=== PATIENT | female | born 1955 | race African-American/Black ===

== ENCOUNTER 2018-09-14 12:31 | Inpatient (IN) | payer OTHER ==
[~2018-09-14 12:31] MED LIST: ADENOSINE 3 MG/ML SYRINGE IV; AMIODARONE 150 MG INJ; EPINEPHrine 0.1 MG/ML SYG; NA BICARBONATE 8.4% 50 ML SYG; NALOXONE 2 MG SYG
[2018-09-14] MEDS: SOD CHLORIDE 0.9% 1,770 ML IV (13:13)
[2018-09-14 13:14] LABS: WHITE BLOOD COUNT 2.6 10^3/ul (4.8-10.8)
[2018-09-14 13:14] LABS: ABNORMAL IP MESSAGE 1; HEMATOCRIT 39.4 % (37.0-47.0); HEMOGLOBIN 12.4 g/dl (12.0-16.0); MEAN CORPUSCULAR HEMOGLOBIN 30.2 pg (29.0-33.0); MEAN CORPUSCULAR HGB CONC 31.5 g/dl (32.0-37.0); MEAN CORPUSCULAR VOLUME 95.9 fl (82.0-101.0); MEAN PLATELET VOLUME 11.1 fl (7.4-10.4); PLATELET COUNT 146 10^3/UL (140-415); RED BLOOD COUNT 4.11 10^6/ul (4.20-5.40); RED CELL DISTRIBUTION WIDTH 12.9 % (11.5-14.5)
[2018-09-14] MEDS: AMIODARONE 900 MG in DEXTROSE 5% 482 ML IV (13:14)
[2018-09-14] MEDS: PIPER-TAZO 3.375 GM IV (PMX) 100 ML IVPB ×2 (13:14→22:22)
[2018-09-14 13:16] LABS: ADD MAN DIFF? YES; POSITIVE DIFF @See below
[2018-09-14] MEDS: PROPOFOL 100 ML IV (13:26)
[2018-09-14 13:40] LABS: INR 1.01; PROTIME 13.4 Sec (11.9-14.9)
[2018-09-14 13:41] LABS: PARTIAL THROMBOPLASTIN TIME 33.1 Sec (23.0-35.0)
[2018-09-14 13:44] LABS: ALANINE AMINOTRANSFERASE 455 IU/L (13-69); ALBUMIN 3.4 g/dl (3.3-4.9); ALKALINE PHOSPHATASE 79 IU/L (42-121); ANION GAP 24 (5-13); ASPARTATE AMINO TRANSFERASE 437 IU/L (15-46); BLOOD UREA NITROGEN 12 mg/dl (7-20); CALCIUM 7.9 mg/dl (8.4-10.2); CARBON DIOXIDE 19 mmol/L (21-31); CHLORIDE 99 mmol/L (97-110); CREATININE 0.89 mg/dl (0.44-1.00); Estimated GFR > 60 mL/min (>60); GLUCOSE 249 mg/dl (70-220); SODIUM 142 mmol/L (135-144)
[2018-09-14 13:46] LABS: AADO2 Arterial 513.2 mmHg (7.0-24.0); Allen Test ACCEPTAB; Arterial Blood Gas Oxygen Sat 98.2 mmHG (95.0-98.0); Arterial COHb 0.3 % (0.0-3.0); Arterial Fraction of Oxyhgb 97.5 % (93.0-99.0); Arterial MetHb 0.4 % (0.0-1.5); Arterial pCO2 49.3 mmhg (35-45); MODE VENT - AC; Site Left Radial
[2018-09-14 13:49] LABS: ETHANOL < 10.0 mg/dl (0-0)
[2018-09-14 13:51] LABS: POTASSIUM 2.1 mmol/L (3.5-5.1)
[2018-09-14 13:53] LABS: BASOPHILS % (M) 1 % (0-2); ERYTHROBLAST% (NRBC) (M) 1 % (0-0); GIANT THROMBO% (M) 3 % (0-0); LYMPHOCYTES #M 2.2 10^3/ul (0.8-2.9); LYMPHOCYTES % (M) 85 % (15-51); METAMYELOCYTES %M 1 % (0-0); MONOCYTES % (M) 2 % (0-11); MYELOCYTES % (M) 1 % (0-0); PLATELET ESTIMATE NORMAL; REACTIVE LYMPHOCYTES #M 0.2 10^3/ul (0.0-0.0); REACTIVE LYMPHOCYTES% (M) 10 % (0-0); SMUDGE%M 18 % (0-0); SPHEROCYTES 1+ (0-0)
[2018-09-14 13:55] LABS: TROPONIN-I 0.014 ng/ml (0.000-0.120)
[2018-09-14] MEDS ORDERED: VECURONIUM 10 MG VIAL (13:59)
[2018-09-14 14:01] LABS: MAGNESIUM 2.2 mg/dl (1.7-2.5)
[2018-09-14] MEDS: POTASSIUM CHLORIDE 100 ML IVPB ×4 (14:10→20:20)
[2018-09-14] MEDS: VANCOMYCIN 1 GM (PMX) 250 ML IVPB (14:10)
[2018-09-14 14:26] LABS: ADD UMIC YES; UR ASCORBIC ACID NEGATIVE (NEGATIVE); UR BACTERIA FEW /HPF (NONE SEEN); UR BILIRUBIN (Dip) NEGATIVE (NEGATIVE); UR BLOOD (Dip) 2+ mg/dL (NEGATIVE); UR CLARITY CLOUDY (CLEAR); UR COLOR YELLOW (YELLOW); UR GLUCOSE (Dip) 3+ mg/dL (NEGATIVE); UR KETONES (Dip) TRACE mg/dL (NEGATIVE); UR LEUKOCYTE ESTERASE (Dip) NEGATIVE Leu/ul (NEGATIVE); UR NITRITE (Dip) NEGATIVE (NEGATIVE); UR RBC 22 /HPF (0-5); UR RENAL EPITHELIAL CELL FEW /HPF (NONE SEEN); UR SQUAMOUS EPITHELIAL CELL MODERATE /HPF (FEW); UR TOTAL PROTEIN (Dip) 3+ mg/dl (NEGATIVE); UR UROBILINOGEN (Dip) NEGATIVE (NEGATIVE); UR WBC 15 /HPF (0-5)
[2018-09-14 14:55] LABS: AMPHETAMINE/METHAMPHETAMINE Negative (NEGATIVE); BARBITURATES Negative (NEGATIVE); BENZODIAZEPINES Negative (NEGATIVE); CANNABINOIDS Negative (NEGATIVE); COCAINE Negative (NEGATIVE); OPIATES Negative (NEGATIVE)
[2018-09-14] MEDS ORDERED: ALBUTEROL HFA 8 GM INHALER INH (16:30)
[2018-09-14 16:49] LABS: HEMOGLOBIN A1C 5.4 % (0-5.9)
[2018-09-14] MEDS: ALBUTEROL HFA 8 GM INHALER INH ×2 (17:00→23:23)
[2018-09-14] MEDS ORDERED: MIDAZOLAM (DRIP) 50 mg/50 mL 50 ML IV ×2 (18:15→18:30)
[2018-09-14 18:21] LABS: LACTIC ACID 3.4 mmol/L (0.5-2.0)
[2018-09-14] MEDS: D5W-0.45 NACL + KCL 20 MEQ 1,000 ML IV (18:28)
[2018-09-14] MEDS: SOD CHLORIDE 0.9% 1,000 ML IV (19:10)
[2018-09-14 19:29] LABS: AADO2 Arterial 608.9 mmHg (7.0-24.0); Allen Test ACCEPTAB; Arterial Base Excess -7.7 mmol/L (-3.0-3); Arterial Blood Gas Oxygen Sat 92.2 mmHG (95.0-98.0); Arterial COHb 0.3 % (0.0-3.0); Arterial Fraction of Oxyhgb 91.6 % (93.0-99.0); Arterial HCO3 19.7 mmol/L (22.0-26.0); Arterial MetHb 0.3 % (0.0-1.5); Arterial pCO2 43.3 mmhg (35-45); MODE VENT - AC; Site Right Radial
[2018-09-14 19:47] LABS: WHITE BLOOD COUNT 2.5 10^3/ul (4.8-10.8)
[2018-09-14 19:48] LABS: ABNORMAL IP MESSAGE 1; HEMATOCRIT 41.8 % (37.0-47.0); HEMOGLOBIN 13.5 g/dl (12.0-16.0); MEAN CORPUSCULAR HEMOGLOBIN 30.1 pg (29.0-33.0); MEAN CORPUSCULAR HGB CONC 32.3 g/dl (32.0-37.0); MEAN CORPUSCULAR VOLUME 93.3 fl (82.0-101.0); MEAN PLATELET VOLUME 10.9 fl (7.4-10.4); PLATELET COUNT 171 10^3/UL (140-415); RED BLOOD COUNT 4.48 10^6/ul (4.20-5.40); RED CELL DISTRIBUTION WIDTH 13.2 % (11.5-14.5)
[2018-09-14 19:56] LABS: ADD MAN DIFF? YES; POSITIVE DIFF @See below
[2018-09-14 20:04] LABS: ANION GAP 6 (5-13); BLOOD UREA NITROGEN 17 mg/dl (7-20); CALCIUM 7.1 mg/dl (8.4-10.2); CARBON DIOXIDE 23 mmol/L (21-31); CHLORIDE 112 mmol/L (97-110); CREATININE 0.94 mg/dl (0.44-1.00); Estimated GFR > 60 mL/min (>60); GLUCOSE 202 mg/dl (70-220); MAGNESIUM 1.8 mg/dl (1.7-2.5); PHOSPHORUS 3.8 mg/dl (2.5-4.9); POTASSIUM 3.5 mmol/L (3.5-5.1); SODIUM 141 mmol/L (135-144)
[2018-09-14 20:10] LABS: LACTIC ACID 4.2 mmol/L (0.5-2.0)
[2018-09-14] MEDS: MIDAZOLAM (DRIP) 50 mg/50 mL 50 ML IV (20:20)
[2018-09-14] MEDS: morphine 2 MG INJ IV (20:20)
[2018-09-14] MEDS: NORepinephrine 8MG/250 ML (PMX 250 ML IV (20:45)
[2018-09-14] MEDS: FENTAnyl (DRIP) 1000 mcg/100mL 100 ML IV (20:50)
[2018-09-14 21:27] LABS: BAND NEUTROPHILS #M 0.6 10^3/ul (0.0-0.6); BAND NEUTROPHILS % (M) 27 % (0-4); GIANT THROMBO% (M) 19 % (0-0); LYMPHOCYTES #M 0.9 10^3/ul (0.8-2.9); LYMPHOCYTES % (M) 37 % (15-51); METAMYELOCYTES #M 0.2 10^3/ul (0.0-0.0); METAMYELOCYTES %M 8 % (0-0); MONOCYTE #M 0.2 10^3/ul (0.3-0.9); MONOCYTES % (M) 11 % (0-11); MYELOCYTES % (M) 3 % (0-0); OVALOCYTES 1+ (0-0); PLATELET ESTIMATE NORMAL; SEG NEUT #M 0.4 10^3/ul (1.6-7.5); SEGMENTED NEUTROPHILS (M) % 14 % (39-77); SMUDGE%M 83 % (0-0)
[2018-09-14] MEDS ORDERED: INSULIN HUMAN REGULAR 100 UNIT in SOD CHLORIDE 0.9% 99 ML IV (22:00)
[2018-09-14] MEDS ORDERED: DEXTROSE 50% 50 ML SYRINGE IV ×2 (22:00)
[2018-09-14] MEDS ORDERED: HEPARIN 5,000 UNIT/1 ML VIAL SC (22:00)
[2018-09-14] MEDS: ACCU-CHEK XX ×2 (22:22→23:16)
[2018-09-14] MEDS: ACETAMINOPHEN 650MG/20.3ML CUP NGT (23:18)
[2018-09-15] MEDS: MIDAZOLAM (DRIP) 50 mg/50 mL 50 ML IV ×2 (00:47→06:23)
[2018-09-15] MEDS: INSULIN HUMAN REGULAR 100 UNIT in SOD CHLORIDE 0.9% 99 ML IV (00:51)
[2018-09-15] MEDS: ACCU-CHEK XX ×24 (01:00→23:07)
[2018-09-15] MEDS: ALBUTEROL HFA 8 GM INHALER INH ×6 (01:00→21:26)
[2018-09-15 01:13] LABS: WHITE BLOOD COUNT 1.3 10^3/ul (4.8-10.8)
[2018-09-15 01:13] LABS: ABNORMAL IP MESSAGE 1; HEMATOCRIT 42.6 % (37.0-47.0); HEMOGLOBIN 13.9 g/dl (12.0-16.0); MEAN CORPUSCULAR HEMOGLOBIN 30.2 pg (29.0-33.0); MEAN CORPUSCULAR HGB CONC 32.6 g/dl (32.0-37.0); MEAN CORPUSCULAR VOLUME 92.6 fl (82.0-101.0); MEAN PLATELET VOLUME 11.1 fl (7.4-10.4); PLATELET COUNT 173 10^3/UL (140-415); RED CELL DISTRIBUTION WIDTH 13.4 % (11.5-14.5)
[2018-09-15 01:23] LABS: ADD MAN DIFF? YES; POSITIVE DIFF @See below
[2018-09-15 01:32] LABS: INR 1.01; PARTIAL THROMBOPLASTIN TIME 30.1 Sec (23.0-35.0); PROTIME 13.4 Sec (11.9-14.9)
[2018-09-15 01:35] LABS: AMYLASE 277 U/L (11-123); ANION GAP 13 (5-13); BLOOD UREA NITROGEN 18 mg/dl (7-20); CALCIUM 7.2 mg/dl (8.4-10.2); CARBON DIOXIDE 22 mmol/L (21-31); CHLORIDE 108 mmol/L (97-110); CREATININE 0.89 mg/dl (0.44-1.00); Estimated GFR > 60 mL/min (>60); GLUCOSE 243 mg/dl (70-220); LIPASE 46 U/L (23-300); MAGNESIUM 1.7 mg/dl (1.7-2.5); PHOSPHORUS 3.2 mg/dl (2.5-4.9); SODIUM 143 mmol/L (135-144)
[2018-09-15 01:43] LABS: AADO2 Arterial 621.8 mmHg (7.0-24.0); Allen Test ACCEPTAB; Arterial Base Excess -10.1 mmol/L (-3.0-3); Arterial pCO2 37.9 mmhg (35-45); MODE VENT - AC; Site Right Radial; Temperature 31.9 C
[2018-09-15] MEDS: VECURONIUM 10 MG VIAL IV (02:00)
[2018-09-15 02:06] LABS: BAND NEUTROPHILS #M 0.4 10^3/ul (0.0-0.6); BAND NEUTROPHILS % (M) 33 % (0-4); BASOPHILS % (M) 1 % (0-2); GIANT THROMBO% (M) 43 % (0-0); LYMPHOCYTES #M 0.5 10^3/ul (0.8-2.9); LYMPHOCYTES % (M) 39 % (15-51); METAMYELOCYTES %M 2 % (0-0); MONOCYTE #M 0.1 10^3/ul (0.3-0.9); MONOCYTES % (M) 9 % (0-11); MYELOCYTES #M 0.1 10^3/ul (0.0-0.0); MYELOCYTES % (M) 9 % (0-0); PLATELET ESTIMATE NORMAL; POIKILOCYTOSIS 2+ (0-0); REACTIVE LYMPHOCYTES% (M) 1 % (0-0); SEG NEUT #M 0.1 10^3/ul (1.6-7.5); SEGMENTED NEUTROPHILS (M) % 6 % (39-77); SMUDGE%M 23 % (0-0)
[2018-09-15 02:08] LABS: CK INDEX 0.5; CREATINE KINASE 10473 IU/L (23-200)
[2018-09-15] MEDS ORDERED: POTASSIUM CHLORIDE 200 ML IVPB (02:52)
[2018-09-15] MEDS: VECURONIUM 100 MG in DEXTROSE 5% 100 ML IV (03:14)
[2018-09-15] MEDS: NORepinephrine 8MG/250 ML (PMX 250 ML IV (04:37)
[2018-09-15] MEDS: POTASSIUM CHLORIDE 100 ML IVPB ×2 (05:11→06:26)
[2018-09-15 05:50] LABS: WHITE BLOOD COUNT 1.5 10^3/ul (4.8-10.8)
[2018-09-15 05:50] LABS: ABNORMAL IP MESSAGE 1; HEMATOCRIT 42.1 % (37.0-47.0); HEMOGLOBIN 13.7 g/dl (12.0-16.0); MEAN CORPUSCULAR HEMOGLOBIN 30.1 pg (29.0-33.0); MEAN CORPUSCULAR HGB CONC 32.5 g/dl (32.0-37.0); MEAN CORPUSCULAR VOLUME 92.5 fl (82.0-101.0); MEAN PLATELET VOLUME 11.2 fl (7.4-10.4); PLATELET COUNT 176 10^3/UL (140-415); RED BLOOD COUNT 4.55 10^6/ul (4.20-5.40); RED CELL DISTRIBUTION WIDTH 13.5 % (11.5-14.5)
[2018-09-15 05:55] LABS: ADD MAN DIFF? YES; POSITIVE DIFF @See below
[2018-09-15] MEDS: SOD CHLORIDE 0.9% 1,000 ML IV ×2 (06:27→21:31)
[2018-09-15 06:32] LABS: CK INDEX 0.4; CREATINE KINASE 10369 IU/L (23-200)
[2018-09-15] MEDS: PIPER-TAZO 3.375 GM IV (PMX) 100 ML IVPB ×3 (06:32→21:29)
[2018-09-15] MEDS: PANTOPRAZOLE 40 MG INJ IV (06:32)
[2018-09-15 06:33] LABS: ALANINE AMINOTRANSFERASE 442 IU/L (13-69); ALBUMIN/GLOBULIN RATIO 1.25; ALKALINE PHOSPHATASE 73 IU/L (42-121); ANION GAP 10 (5-13); ASPARTATE AMINO TRANSFERASE 591 IU/L (15-46); BILIRUBIN,INDIRECT 0.2 mg/dl (0-1.1); BILIRUBIN,TOTAL 0.2 mg/dl (0.2-1.3); BLOOD UREA NITROGEN 19 mg/dl (7-20); CALCIUM 7.3 mg/dl (8.4-10.2); CARBON DIOXIDE 20 mmol/L (21-31); CHLORIDE 114 mmol/L (97-110); CREATININE 1.17 mg/dl (0.44-1.00); Estimated GFR 57 mL/min (>60); GLUCOSE 172 mg/dl (70-220); MAGNESIUM 1.7 mg/dl (1.7-2.5); POTASSIUM 3.3 mmol/L (3.5-5.1); SODIUM 144 mmol/L (135-144); TOTAL PROTEIN 5.4 g/dl (6.1-8.1)
[2018-09-15] MEDS: D5W-0.45 NACL + KCL 20 MEQ 1,000 ML IV (07:59)
[2018-09-15 08:45] LABS: ANISOCYTOSIS 1+ (0-0); BAND NEUTROPHILS #M 0.5 10^3/ul (0.0-0.6); BAND NEUTROPHILS % (M) 37 % (0-4); BASOPHILS % (M) 1 % (0-2); BURR CELLS 1+ (0-0); EOSINOPHILS % (M) 1 % (0-7); GIANT THROMBO% (M) 35 % (0-0); LYMPHOCYTES #M 0.6 10^3/ul (0.8-2.9); LYMPHOCYTES % (M) 40 % (15-51); METAMYELOCYTES %M 2 % (0-0); MONOCYTE #M 0.1 10^3/ul (0.3-0.9); MONOCYTES % (M) 7 % (0-11); MYELOCYTES % (M) 6 % (0-0); PLATELET ESTIMATE NORMAL; POIKILOCYTOSIS 1+ (0-0); REACTIVE LYMPHOCYTES% (M) 4 % (0-0); SEGMENTED NEUTROPHILS (M) % 2 % (39-77); SMUDGE%M 11 % (0-0)
[2018-09-15 09:16] LABS: AADO2 Arterial 616.2 mmHg (7.0-24.0); Allen Test ACCEPTAB; Arterial Base Excess -12.7 mmol/L (-3.0-3); Arterial Blood Gas Oxygen Sat 95.4 mmHG (95.0-98.0); Arterial COHb 0.3 % (0.0-3.0); Arterial Fraction of Oxyhgb 94.8 % (93.0-99.0); Arterial HCO3 15.6 mmol/L (22.0-26.0); Arterial MetHb 0.3 % (0.0-1.5); Arterial pCO2 37.4 mmhg (35-45); MODE VENT - AC; Site Right Radial; Temperature 32.8 C
[2018-09-15] MEDS: FENTAnyl (DRIP) 1000 mcg/100mL 100 ML IV (09:45)
[2018-09-15] MEDS: MAGNESIUM SULFATE 2 GM/50 ML 50 ML IVPB (09:46)
[2018-09-15] MEDS: NA BICARBONATE 8.4% 50 ML SYG IV (09:47)
[2018-09-15 11:02] LABS: LACTIC ACID 4.5 mmol/L (0.5-2.0)
[2018-09-15] MEDS: SODIUM BICARBONATE (IV ADD) 100 MEQ in DEXTROSE 5% 1,000 ML IV ×2 (11:07→23:08)
[2018-09-15] MEDS: OCULAR LUBRICANT 3.5 GM OPH OINT BOTH EYES ×3 (11:56→23:08)
[2018-09-15] MEDS: ARTIFICIAL TEARS 15 ML OPH BOTH EYES ×3 (11:57→23:08)
[2018-09-15 12:08] LABS: ABNORMAL IP MESSAGE 1; HEMATOCRIT 40.6 % (37.0-47.0); HEMOGLOBIN 13.4 g/dl (12.0-16.0); MEAN PLATELET VOLUME 11.2 fl (7.4-10.4); PLATELET COUNT 150 10^3/UL (140-415); POSITIVE DIFF @See below; RED BLOOD COUNT 4.46 10^6/ul (4.20-5.40); RED CELL DISTRIBUTION WIDTH 13.5 % (11.5-14.5)
[2018-09-15 12:08] LABS: WHITE BLOOD COUNT 1.8 10^3/ul (4.8-10.8)
[2018-09-15 12:09] LABS: ADD MAN DIFF? YES
[2018-09-15 12:22] LABS: ALANINE AMINOTRANSFERASE 368 IU/L (13-69); ALBUMIN 2.8 g/dl (3.3-4.9); ALBUMIN/GLOBULIN RATIO 1.12; ALKALINE PHOSPHATASE 63 IU/L (42-121); ANION GAP 13 (5-13); ASPARTATE AMINO TRANSFERASE 408 IU/L (15-46); BILIRUBIN,INDIRECT 0.2 mg/dl (0-1.1); BILIRUBIN,TOTAL 0.2 mg/dl (0.2-1.3); BLOOD UREA NITROGEN 20 mg/dl (7-20); CALCIUM 7.3 mg/dl (8.4-10.2); CARBON DIOXIDE 21 mmol/L (21-31); CHLORIDE 111 mmol/L (97-110); CREATININE 1.17 mg/dl (0.44-1.00); Estimated GFR 57 mL/min (>60); GLUCOSE 141 mg/dl (70-220); MAGNESIUM 3.2 mg/dl (1.7-2.5); SODIUM 145 mmol/L (135-144); TOTAL PROTEIN 5.3 g/dl (6.1-8.1)
[2018-09-15 12:27] LABS: INR 1.02; PROTIME 13.5 Sec (11.9-14.9); PT RATIO 1.1
[2018-09-15 12:28] LABS: PARTIAL THROMBOPLASTIN TIME 35.1 Sec (23.0-35.0)
[2018-09-15 12:33] LABS: AADO2 Arterial 549.8 mmHg (7.0-24.0); Allen Test ACCEPTAB; Arterial Base Excess -6.7 mmol/L (-3.0-3); Arterial Blood Gas Oxygen Sat 98.7 mmHG (95.0-98.0); Arterial COHb 0.3 % (0.0-3.0); Arterial Fraction of Oxyhgb 98.2 % (93.0-99.0); Arterial HCO3 19.6 mmol/L (22.0-26.0); Arterial MetHb 0.2 % (0.0-1.5); Arterial pCO2 35.5 mmhg (35-45); MODE VENT - AC; Site Right Radial; Temperature 33.2 C
[2018-09-15 12:55] LABS: ANISOCYTOSIS 1+ (0-0); BAND NEUTROPHILS #M 0.6 10^3/ul (0.0-0.6); BAND NEUTROPHILS % (M) 37 % (0-4); BURR CELLS 2+ (0-0); ERYTHROBLAST% (NRBC) (M) 1 % (0-0); GIANT THROMBO% (M) 12 % (0-0); LYMPHOCYTES #M 0.5 10^3/ul (0.8-2.9); LYMPHOCYTES % (M) 32 % (15-51); METAMYELOCYTES #M 0.1 10^3/ul (0.0-0.0); METAMYELOCYTES %M 7 % (0-0); MICROCYTOSIS 1+ (0-0); MONOCYTE #M 0.1 10^3/ul (0.3-0.9); MONOCYTES % (M) 8 % (0-11); MYELOCYTES % (M) 4 % (0-0); PLATELET ESTIMATE DECREASED; POIKILOCYTOSIS 2+ (0-0); POLYCHROMASIA 3+ (0-0); REACTIVE LYMPHOCYTES% (M) 1 % (0-0); SEG NEUT #M 0.2 10^3/ul (1.6-7.5); SEGMENTED NEUTROPHILS (M) % 10 % (39-77); SMUDGE%M 8 % (0-0)
[2018-09-15 13:10] LABS: CK INDEX 0.5; CREATINE KINASE 9831 IU/L (23-200)
[2018-09-15] MEDS: POTASSIUM CHLORIDE 50 ML IVPB ×3 (17:26→19:00)
[2018-09-15 18:08] LABS: WHITE BLOOD COUNT 2.1 10^3/ul (4.8-10.8)
[2018-09-15 18:08] LABS: ABNORMAL IP MESSAGE 1; HEMATOCRIT 39.3 % (37.0-47.0); HEMOGLOBIN 13.1 g/dl (12.0-16.0); MEAN CORPUSCULAR HEMOGLOBIN 29.8 pg (29.0-33.0); MEAN CORPUSCULAR HGB CONC 33.3 g/dl (32.0-37.0); MEAN CORPUSCULAR VOLUME 89.3 fl (82.0-101.0); MEAN PLATELET VOLUME 11.1 fl (7.4-10.4); PLATELET COUNT 122 10^3/UL (140-415); RED CELL DISTRIBUTION WIDTH 13.4 % (11.5-14.5)
[2018-09-15 18:11] LABS: POSITIVE DIFF @See below
[2018-09-15 18:12] LABS: ADD MAN DIFF? YES
[2018-09-15 18:27] LABS: INR 1.06; PROTIME 13.9 Sec (11.9-14.9); PT RATIO 1.1
[2018-09-15 18:28] LABS: PARTIAL THROMBOPLASTIN TIME 38.3 Sec (23.0-35.0)
[2018-09-15 18:31] LABS: ALANINE AMINOTRANSFERASE 342 IU/L (13-69); ALBUMIN 2.7 g/dl (3.3-4.9); ALBUMIN/GLOBULIN RATIO 1.12; ALKALINE PHOSPHATASE 58 IU/L (42-121); ANION GAP 7 (5-13); ASPARTATE AMINO TRANSFERASE 353 IU/L (15-46); BILIRUBIN,INDIRECT 0.2 mg/dl (0-1.1); BILIRUBIN,TOTAL 0.2 mg/dl (0.2-1.3); BLOOD UREA NITROGEN 22 mg/dl (7-20); CALCIUM 7.4 mg/dl (8.4-10.2); CARBON DIOXIDE 24 mmol/L (21-31); CHLORIDE 110 mmol/L (97-110); Estimated GFR 55 mL/min (>60); GLUCOSE 173 mg/dl (70-220); MAGNESIUM 2.3 mg/dl (1.7-2.5); PHOSPHORUS 2.4 mg/dl (2.5-4.9); POTASSIUM 3.6 mmol/L (3.5-5.1); SODIUM 141 mmol/L (135-144); TOTAL PROTEIN 5.1 g/dl (6.1-8.1)
[2018-09-15 18:35] LABS: LACTIC ACID 3.7 mmol/L (0.5-2.0)
[2018-09-15 18:37] LABS: AADO2 Arterial 368.6 mmHg (7.0-24.0); Allen Test ACCEPTAB; Arterial Base Excess -3.4 mmol/L (-3.0-3); Arterial Blood Gas Oxygen Sat 99.1 mmHG (95.0-98.0); Arterial COHb 0.1 % (0.0-3.0); Arterial Fraction of Oxyhgb 98.7 % (93.0-99.0); Arterial HCO3 22.6 mmol/L (22.0-26.0); Arterial MetHb 0.3 % (0.0-1.5); Arterial pCO2 38.1 mmhg (35-45); MODE TRACH COLLAR; Site Left Radial; Temperature 33.7 C
[2018-09-15 20:29] LABS: ANISOCYTOSIS 1+ (0-0); BAND NEUTROPHILS #M 0.8 10^3/ul (0.0-0.6); BAND NEUTROPHILS % (M) 42 % (0-4); BURR CELLS 3+ (0-0); GIANT THROMBO% (M) 19 % (0-0); LYMPHOCYTES #M 0.3 10^3/ul (0.8-2.9); LYMPHOCYTES % (M) 19 % (15-51); METAMYELOCYTES #M 0.2 10^3/ul (0.0-0.0); METAMYELOCYTES %M 12 % (0-0); MONOCYTE #M 0.2 10^3/ul (0.3-0.9); MONOCYTES % (M) 10 % (0-11); MYELOCYTES % (M) 2 % (0-0); PLATELET ESTIMATE NORMAL; POIKILOCYTOSIS 3+ (0-0); POLYCHROMASIA 1+ (0-0); REACTIVE LYMPHOCYTES% (M) 3 % (0-0); SEG NEUT #M 0.3 10^3/ul (1.6-7.5); SEGMENTED NEUTROPHILS (M) % 12 % (39-77)
[2018-09-15] MEDS: FUROSEMIDE 20 MG INJ IV (20:31)
[2018-09-16 00:22] LABS: AADO2 Arterial 222.1 mmHg (7.0-24.0); Allen Test ACCEPTAB; Arterial Base Excess -3.2 mmol/L (-3.0-3); Arterial Blood Gas Oxygen Sat 97.6 mmHG (95.0-98.0); Arterial COHb 0.3 % (0.0-3.0); Arterial Fraction of Oxyhgb 97.2 % (93.0-99.0); Arterial HCO3 19.8 mmol/L (22.0-26.0); Arterial MetHb 0.1 % (0.0-1.5); Arterial pCO2 29.8 mmhg (35-45); MODE VENT - AC; Site Right Radial
[2018-09-16 00:42] LABS: ABNORMAL IP MESSAGE 1; HEMOGLOBIN 11.3 g/dl (12.0-16.0); MEAN CORPUSCULAR HEMOGLOBIN 30.5 pg (29.0-33.0); MEAN CORPUSCULAR HGB CONC 34.2 g/dl (32.0-37.0); MEAN CORPUSCULAR VOLUME 89.2 fl (82.0-101.0); MEAN PLATELET VOLUME 11.8 fl (7.4-10.4); PLATELET COUNT 106 10^3/UL (140-415); RED CELL DISTRIBUTION WIDTH 13.4 % (11.5-14.5)
[2018-09-16 00:42] LABS: WHITE BLOOD COUNT 2.2 10^3/ul (4.8-10.8)
[2018-09-16 00:44] LABS: POSITIVE DIFF @See below
[2018-09-16 00:45] LABS: ADD MAN DIFF? YES
[2018-09-16 01:05] LABS: ALANINE AMINOTRANSFERASE 260 IU/L (13-69); ALBUMIN 2.2 g/dl (3.3-4.9); ALBUMIN/GLOBULIN RATIO 1.04; ALKALINE PHOSPHATASE 42 IU/L (42-121); ANION GAP 8 (5-13); ASPARTATE AMINO TRANSFERASE 232 IU/L (15-46); BILIRUBIN,INDIRECT 0.2 mg/dl (0-1.1); BILIRUBIN,TOTAL 0.2 mg/dl (0.2-1.3); BLOOD UREA NITROGEN 21 mg/dl (7-20); CALCIUM 6.7 mg/dl (8.4-10.2); CARBON DIOXIDE 25 mmol/L (21-31); CHLORIDE 110 mmol/L (97-110); CREATININE 1.19 mg/dl (0.44-1.00); Estimated GFR 55 mL/min (>60); GLUCOSE 140 mg/dl (70-220); MAGNESIUM 1.9 mg/dl (1.7-2.5); PHOSPHORUS 1.7 mg/dl (2.5-4.9); SODIUM 143 mmol/L (135-144); TOTAL PROTEIN 4.3 g/dl (6.1-8.1)
[2018-09-16 01:07] LABS: INR 1.18; PROTIME 15.1 Sec (11.9-14.9); PT RATIO 1.2
[2018-09-16 01:08] LABS: PARTIAL THROMBOPLASTIN TIME 40.9 Sec (23.0-35.0)
[2018-09-16 01:14] LABS: LACTIC ACID 3.5 mmol/L (0.5-2.0)
[2018-09-16] MEDS: ACCU-CHEK XX ×24 (01:17→23:00)
[2018-09-16] MEDS: ALBUTEROL HFA 8 GM INHALER INH ×6 (01:33→20:09)
[2018-09-16 01:41] LABS: ANISOCYTOSIS 1+ (0-0); BAND NEUTROPHILS % (M) 46 % (0-4); GIANT THROMBO% (M) 4 % (0-0); LYMPHOCYTES #M 0.4 10^3/ul (0.8-2.9); LYMPHOCYTES % (M) 21 % (15-51); METAMYELOCYTES #M 0.1 10^3/ul (0.0-0.0); METAMYELOCYTES %M 7 % (0-0); MICROCYTOSIS 1+ (0-0); MONOCYTES % (M) 2 % (0-11); PLATELET ESTIMATE DECREASED; POIKILOCYTOSIS 3+ (0-0); POLYCHROMASIA 3+ (0-0); SEG NEUT #M 0.6 10^3/ul (1.6-7.5); SEGMENTED NEUTROPHILS (M) % 24 % (39-77); SMUDGE%M 2 % (0-0)
[2018-09-16] MEDS ORDERED: MAGNESIUM SULFATE 1 GM/D5W 100 ML (02:54)
[2018-09-16] MEDS: MAGNESIUM SULFATE 1 GM/D5W 100 ML IVPB (02:57)
[2018-09-16] MEDS: SOD CHLORIDE 0.9% 1,000 ML IV (04:07)
[2018-09-16] MEDS ORDERED: POTASSIUM CHLORIDE 100 ML IVPB (04:38)
[2018-09-16] MEDS: PANTOPRAZOLE 40 MG INJ IV (05:25)
[2018-09-16] MEDS: POTASSIUM CHLORIDE 100 ML IVPB (05:25)
[2018-09-16] MEDS: OCULAR LUBRICANT 3.5 GM OPH OINT BOTH EYES ×3 (05:26→17:23)
[2018-09-16] MEDS: ARTIFICIAL TEARS 15 ML OPH BOTH EYES ×3 (05:26→17:23)
[2018-09-16 05:52] LABS: AADO2 Arterial 250.3 mmHg (7.0-24.0); Allen Test ACCEPTAB; Arterial Base Excess -0.9 mmol/L (-3.0-3); Arterial Blood Gas Oxygen Sat 96.1 mmHG (95.0-98.0); Arterial COHb 0.3 % (0.0-3.0); Arterial Fraction of Oxyhgb 95.6 % (93.0-99.0); Arterial HCO3 22.3 mmol/L (22.0-26.0); Arterial MetHb 0.2 % (0.0-1.5); Arterial pCO2 30.6 mmhg (35-45); MODE VENT - AC; Site Right Radial; Temperature 35.4 C
[2018-09-16 06:14] LABS: ABNORMAL IP MESSAGE 1; HEMATOCRIT 34.8 % (37.0-47.0); HEMOGLOBIN 11.9 g/dl (12.0-16.0); MEAN CORPUSCULAR HEMOGLOBIN 30.1 pg (29.0-33.0); MEAN CORPUSCULAR HGB CONC 34.2 g/dl (32.0-37.0); MEAN CORPUSCULAR VOLUME 88.1 fl (82.0-101.0); MEAN PLATELET VOLUME 11.3 fl (7.4-10.4); PLATELET COUNT 109 10^3/UL (140-415); RED BLOOD COUNT 3.95 10^6/ul (4.20-5.40); RED CELL DISTRIBUTION WIDTH 13.4 % (11.5-14.5)
[2018-09-16 06:14] LABS: WHITE BLOOD COUNT 3.1 10^3/ul (4.8-10.8)
[2018-09-16 06:25] LABS: ADD MAN DIFF? YES; POSITIVE DIFF @See below
[2018-09-16 06:32] LABS: INR 1.69; PT RATIO 1.6
[2018-09-16 06:33] LABS: PARTIAL THROMBOPLASTIN TIME 44.9 Sec (23.0-35.0)
[2018-09-16] MEDS: PIPER-TAZO 3.375 GM IV (PMX) 100 ML IVPB ×3 (06:36→21:53)
[2018-09-16 06:43] LABS: ALANINE AMINOTRANSFERASE 271 IU/L (13-69); ALBUMIN 2.5 g/dl (3.3-4.9); ALBUMIN/GLOBULIN RATIO 1.13; ALKALINE PHOSPHATASE 49 IU/L (42-121); ANION GAP 6 (5-13); ASPARTATE AMINO TRANSFERASE 251 IU/L (15-46); BILIRUBIN,INDIRECT 0.3 mg/dl (0-1.1); BILIRUBIN,TOTAL 0.3 mg/dl (0.2-1.3); BLOOD UREA NITROGEN 24 mg/dl (7-20); CALCIUM 7.1 mg/dl (8.4-10.2); CARBON DIOXIDE 26 mmol/L (21-31); CHLORIDE 107 mmol/L (97-110); CREATININE 1.32 mg/dl (0.44-1.00); Estimated GFR 49 mL/min (>60); GLUCOSE 163 mg/dl (70-220); MAGNESIUM 2.3 mg/dl (1.7-2.5); PHOSPHORUS 2.5 mg/dl (2.5-4.9); POTASSIUM 3.6 mmol/L (3.5-5.1); SODIUM 139 mmol/L (135-144); TOTAL PROTEIN 4.7 g/dl (6.1-8.1)
[2018-09-16 06:44] LABS: LACTIC ACID 3.2 mmol/L (0.5-2.0)
[2018-09-16] MEDS: FENTAnyl (DRIP) 1000 mcg/100mL 100 ML IV (09:00)
[2018-09-16] MEDS ORDERED: D5W-0.45 NACL + KCL 20 MEQ 1,000 ML IV (09:00)
[2018-09-16 09:30] LABS: BAND NEUTROPHILS #M 0.9 10^3/ul (0.0-0.6); BAND NEUTROPHILS % (M) 31 % (0-4); EOSINOPHILS % (M) 2 % (0-7); ERYTHROBLAST% (NRBC) (M) 3 % (0-0); GIANT THROMBO% (M) 28 % (0-0); LYMPHOCYTES % (M) 33 % (15-51); METAMYELOCYTES #M 0.1 10^3/ul (0.0-0.0); METAMYELOCYTES %M 4 % (0-0); MONOCYTE #M 0.3 10^3/ul (0.3-0.9); MONOCYTES % (M) 11 % (0-11); PLATELET ESTIMATE DECREASED; SEG NEUT #M 0.6 10^3/ul (1.6-7.5); SEGMENTED NEUTROPHILS (M) % 19 % (39-77); SMUDGE%M 28 % (0-0)
[2018-09-16] MEDS: MIDAZOLAM (DRIP) 50 mg/50 mL 50 ML IV (09:30)
[2018-09-16] MEDS: ASPIRIN 300 MG SUPP PR (09:30)
[2018-09-16] MEDS: DEXTROSE 5%-0.45% NACL 1,000 ML IV ×2 (10:00→21:53)
[2018-09-16 12:11] LABS: ABNORMAL IP MESSAGE 1; HEMATOCRIT 33.7 % (37.0-47.0); HEMOGLOBIN 11.6 g/dl (12.0-16.0); MEAN CORPUSCULAR HEMOGLOBIN 30.3 pg (29.0-33.0); MEAN CORPUSCULAR HGB CONC 34.4 g/dl (32.0-37.0); MEAN PLATELET VOLUME 11.7 fl (7.4-10.4); PLATELET COUNT 123 10^3/UL (140-415); RED BLOOD COUNT 3.83 10^6/ul (4.20-5.40); RED CELL DISTRIBUTION WIDTH 13.7 % (11.5-14.5)
[2018-09-16 12:11] LABS: WHITE BLOOD COUNT 4.3 10^3/ul (4.8-10.8)
[2018-09-16 12:16] LABS: ALANINE AMINOTRANSFERASE 252 IU/L (13-69); ALBUMIN 2.6 g/dl (3.3-4.9); ALBUMIN/GLOBULIN RATIO 1.18; ALKALINE PHOSPHATASE 49 IU/L (42-121); ANION GAP 7 (5-13); ASPARTATE AMINO TRANSFERASE 227 IU/L (15-46); BILIRUBIN,INDIRECT 0.4 mg/dl (0-1.1); BILIRUBIN,TOTAL 0.4 mg/dl (0.2-1.3); BLOOD UREA NITROGEN 25 mg/dl (7-20); CARBON DIOXIDE 24 mmol/L (21-31); CHLORIDE 107 mmol/L (97-110); CREATININE 1.47 mg/dl (0.44-1.00); Estimated GFR 43 mL/min (>60); GLUCOSE 137 mg/dl (70-220); POTASSIUM 3.6 mmol/L (3.5-5.1); SODIUM 138 mmol/L (135-144); TOTAL PROTEIN 4.8 g/dl (6.1-8.1)
[2018-09-16 12:17] LABS: LACTIC ACID 3.1 mmol/L (0.5-2.0)
[2018-09-16 12:18] LABS: ADD MAN DIFF? YES; POSITIVE DIFF @See below
[2018-09-16 12:26] LABS: INR 1.47; PARTIAL THROMBOPLASTIN TIME 39.7 Sec (23.0-35.0); PROTIME 17.9 Sec (11.9-14.9); PT RATIO 1.4
[2018-09-16 12:28] LABS: LIPASE 19 U/L (23-300)
[2018-09-16 12:28] LABS: AMYLASE 119 U/L (11-123)
[2018-09-16 12:56] LABS: ANISOCYTOSIS 1+ (0-0); BAND NEUTROPHILS #M 1.7 10^3/ul (0.0-0.6); BAND NEUTROPHILS % (M) 40 % (0-4); BASOPHILS % (M) 1 % (0-2); DIMORPHIC RBC 1+ (0-0); ERYTHROBLAST% (NRBC) (M) 1 % (0-0); GIANT THROMBO% (M) 28 % (0-0); LYMPHOCYTES #M 1.4 10^3/ul (0.8-2.9); LYMPHOCYTES % (M) 34 % (15-51); METAMYELOCYTES #M 0.1 10^3/ul (0.0-0.0); METAMYELOCYTES %M 3 % (0-0); MICROCYTOSIS 1+ (0-0); MONOCYTE #M 0.1 10^3/ul (0.3-0.9); MONOCYTES % (M) 4 % (0-11); MYELOCYTES % (M) 1 % (0-0); PLATELET ESTIMATE NORMAL; POIKILOCYTOSIS 3+ (0-0); POLYCHROMASIA 1+ (0-0); REACTIVE LYMPHOCYTES% (M) 1 % (0-0); SEG NEUT #M 0.8 10^3/ul (1.6-7.5); SEGMENTED NEUTROPHILS (M) % 16 % (39-77); SMUDGE%M 20 % (0-0)
[2018-09-16 13:17] LABS: AADO2 Arterial 227.8 mmHg (7.0-24.0); Allen Test ACCEPTAB; Arterial Base Excess -1.2 mmol/L (-3.0-3); Arterial Blood Gas Oxygen Sat 97.1 mmHG (95.0-98.0); Arterial COHb 0.3 % (0.0-3.0); Arterial Fraction of Oxyhgb 96.5 % (93.0-99.0); Arterial HCO3 21.5 mmol/L (22.0-26.0); Arterial MetHb 0.3 % (0.0-1.5); Arterial pCO2 29.6 mmhg (35-45); MODE VENT - AC; Site Left Radial; Temperature 36.7 C
[2018-09-16 13:29] LABS: PATH REVIEW? YES
[2018-09-16] MEDS: FUROSEMIDE 20 MG INJ IV (17:23)
[2018-09-16 18:34] LABS: ALANINE AMINOTRANSFERASE 233 IU/L (13-69); ALBUMIN 2.7 g/dl (3.3-4.9); ALBUMIN/GLOBULIN RATIO 1.08; ALKALINE PHOSPHATASE 51 IU/L (42-121); ANION GAP 11 (5-13); ASPARTATE AMINO TRANSFERASE 215 IU/L (15-46); BILIRUBIN,INDIRECT 0.4 mg/dl (0-1.1); BILIRUBIN,TOTAL 0.4 mg/dl (0.2-1.3); BLOOD UREA NITROGEN 27 mg/dl (7-20); CALCIUM 7.1 mg/dl (8.4-10.2); CARBON DIOXIDE 25 mmol/L (21-31); CHLORIDE 104 mmol/L (97-110); CREATININE 1.55 mg/dl (0.44-1.00); Estimated GFR 41 mL/min (>60); GLUCOSE 139 mg/dl (70-220); MAGNESIUM 1.9 mg/dl (1.7-2.5); PHOSPHORUS 3.6 mg/dl (2.5-4.9); POTASSIUM 3.4 mmol/L (3.5-5.1); PROTIME 17.3 Sec (11.9-14.9); PT RATIO 1.4; SODIUM 140 mmol/L (135-144); TOTAL PROTEIN 5.2 g/dl (6.1-8.1)
[2018-09-16 18:35] LABS: LACTIC ACID 2.6 mmol/L (0.5-2.0)
[2018-09-16 18:35] LABS: PARTIAL THROMBOPLASTIN TIME 39.9 Sec (23.0-35.0)
[2018-09-17] MEDS: ARTIFICIAL TEARS 15 ML OPH BOTH EYES ×3 (00:01→12:00)
[2018-09-17] MEDS: ALBUTEROL HFA 8 GM INHALER INH ×5 (00:06→19:57)
[2018-09-17] MEDS: ACCU-CHEK XX ×4 (01:00→03:00)
[2018-09-17] MEDS ORDERED: GLUCAGON 1 MG INJ IM (04:30)
[2018-09-17] MEDS ORDERED: DEXTROSE 50% 50 ML SYRINGE IV ×2 (04:30)
[2018-09-17] MEDS ORDERED: GLUCOSE GEL 15 GRAM TUBE BUCCAL (04:30)
[2018-09-17] MEDS ORDERED: GLUCOSE GEL 15 GRAM TUBE PO ×2 (04:30)
[2018-09-17 04:54] LABS: ABNORMAL IP MESSAGE 1; MEAN CORPUSCULAR HEMOGLOBIN 30.1 pg (29.0-33.0); MEAN CORPUSCULAR HGB CONC 33.3 g/dl (32.0-37.0); MEAN CORPUSCULAR VOLUME 90.4 fl (82.0-101.0); MEAN PLATELET VOLUME 11.3 fl (7.4-10.4); PLATELET COUNT 97 10^3/UL (140-415); RED BLOOD COUNT 3.32 10^6/ul (4.20-5.40); RED CELL DISTRIBUTION WIDTH 14.2 % (11.5-14.5)
[2018-09-17 04:54] LABS: WHITE BLOOD COUNT 7.2 10^3/ul (4.8-10.8)
[2018-09-17 04:57] LABS: ADD MAN DIFF? YES; POSITIVE DIFF @See below
[2018-09-17] MEDS: INSULIN ASPART [NOVOLOG] 3 ML PEN SC ×5 (05:00→21:00)
[2018-09-17 05:29] LABS: LACTIC ACID 1.9 mmol/L (0.5-2.0)
[2018-09-17 05:32] LABS: ALANINE AMINOTRANSFERASE 196 IU/L (13-69); ALBUMIN 2.2 g/dl (3.3-4.9); ALBUMIN/GLOBULIN RATIO 1.15; ALKALINE PHOSPHATASE 49 IU/L (42-121); ANION GAP 8 (5-13); ASPARTATE AMINO TRANSFERASE 161 IU/L (15-46); BILIRUBIN,INDIRECT 0.4 mg/dl (0-1.1); BILIRUBIN,TOTAL 0.4 mg/dl (0.2-1.3); BLOOD UREA NITROGEN 25 mg/dl (7-20); CARBON DIOXIDE 28 mmol/L (21-31); CHLORIDE 104 mmol/L (97-110); CREATININE 1.58 mg/dl (0.44-1.00); Estimated GFR 40 mL/min (>60); GLUCOSE 96 mg/dl (70-220); MAGNESIUM 1.8 mg/dl (1.7-2.5); POTASSIUM 3.4 mmol/L (3.5-5.1); SODIUM 140 mmol/L (135-144); TOTAL PROTEIN 4.1 g/dl (6.1-8.1)
[2018-09-17] MEDS: DEXTROSE 5%-0.45% NACL 1,000 ML IV ×2 (06:00→09:30)
[2018-09-17] MEDS: PANTOPRAZOLE 40 MG INJ IV (06:03)
[2018-09-17] MEDS: PIPER-TAZO 3.375 GM IV (PMX) 100 ML IVPB ×3 (06:03→21:08)
[2018-09-17 07:15] LABS: ANISOCYTOSIS 1+ (0-0); BAND NEUTROPHILS #M 3.1 10^3/ul (0.0-0.6); BAND NEUTROPHILS % (M) 44 % (0-4); LYMPHOCYTES #M 0.3 10^3/ul (0.8-2.9); LYMPHOCYTES % (M) 5 % (15-51); METAMYELOCYTES #M 0.5 10^3/ul (0.0-0.0); METAMYELOCYTES %M 8 % (0-0); MICROCYTOSIS 1+ (0-0); MONOCYTES % (M) 1 % (0-11); PLATELET ESTIMATE DECREASED; SEG NEUT #M 3.2 10^3/ul (1.6-7.5); SEGMENTED NEUTROPHILS (M) % 42 % (39-77); SMUDGE%M 2 % (0-0)
[2018-09-17] MEDS: ASPIRIN 300 MG SUPP PR (09:30)
[2018-09-17] MEDS: ACETAMINOPHEN 650MG/20.3ML CUP NGT (09:30)
[2018-09-17] MEDS: POTASSIUM CHLORIDE 100 ML IVPB ×4 (10:00→18:01)
[2018-09-17 11:53] LABS: CREATINE KINASE 1508 IU/L (23-200)
[2018-09-17] MEDS: FUROSEMIDE 20 MG INJ IV ×2 (12:00→18:01)
[2018-09-17] MEDS: MAGNESIUM SULFATE 2 GM/50 ML 50 ML IVPB (12:00)
[2018-09-17 15:31] LABS: SODIUM,URINE RANDOM 29 mmol/L (30-90)
[2018-09-17 15:42] LABS: ANION GAP 5 (5-13); BLOOD UREA NITROGEN 26 mg/dl (7-20); CALCIUM 7.8 mg/dl (8.4-10.2); CARBON DIOXIDE 28 mmol/L (21-31); CHLORIDE 105 mmol/L (97-110); Estimated GFR 46 mL/min (>60); GLUCOSE 93 mg/dl (70-220); MAGNESIUM 2.5 mg/dl (1.7-2.5); POTASSIUM 3.4 mmol/L (3.5-5.1); SODIUM 138 mmol/L (135-144)
[2018-09-17] MEDS: POTASSIUM CHLORIDE 20 MEQ POWDER FOR ORAL SOLN PO (16:13)
[2018-09-17 22:38] LABS: POTASSIUM 3.8 mmol/L (3.5-5.1)
[2018-09-18] MEDS: INSULIN ASPART [NOVOLOG] 3 ML PEN SC ×6 (01:00→21:00)
[2018-09-18] MEDS ORDERED: ACCU-CHEK XX (02:00)
[2018-09-18] MEDS: ALBUTEROL HFA 8 GM INHALER INH ×4 (02:00→20:32)
[2018-09-18 04:57] LABS: ABNORMAL IP MESSAGE 1; HEMATOCRIT 26.8 % (37.0-47.0); HEMOGLOBIN 8.9 g/dl (12.0-16.0); MEAN CORPUSCULAR HEMOGLOBIN 30.4 pg (29.0-33.0); MEAN CORPUSCULAR HGB CONC 33.2 g/dl (32.0-37.0); MEAN CORPUSCULAR VOLUME 91.5 fl (82.0-101.0); MEAN PLATELET VOLUME 12.2 fl (7.4-10.4); PLATELET COUNT 81 10^3/UL (140-415); RED BLOOD COUNT 2.93 10^6/ul (4.20-5.40); RED CELL DISTRIBUTION WIDTH 14.3 % (11.5-14.5)
[2018-09-18 05:10] LABS: ADD MAN DIFF? YES; POSITIVE DIFF @See below
[2018-09-18 05:17] LABS: ANION GAP 6 (5-13); BLOOD UREA NITROGEN 29 mg/dl (7-20); CARBON DIOXIDE 27 mmol/L (21-31); CHLORIDE 106 mmol/L (97-110); CREATININE 1.44 mg/dl (0.44-1.00); Estimated GFR 44 mL/min (>60); GLUCOSE 103 mg/dl (70-220); POTASSIUM 3.4 mmol/L (3.5-5.1); SODIUM 139 mmol/L (135-144)
[2018-09-18 05:18] LABS: ALANINE AMINOTRANSFERASE 148 IU/L (13-69); ALBUMIN 2.7 g/dl (3.3-4.9); ALBUMIN/GLOBULIN RATIO 1.12; ALKALINE PHOSPHATASE 88 IU/L (42-121); ASPARTATE AMINO TRANSFERASE 144 IU/L (15-46); BILIRUBIN,INDIRECT 0.5 mg/dl (0-1.1); BILIRUBIN,TOTAL 0.5 mg/dl (0.2-1.3); CALCIUM 8.1 mg/dl (8.4-10.2); MAGNESIUM 2.4 mg/dl (1.7-2.5); TOTAL PROTEIN 5.1 g/dl (6.1-8.1)
[2018-09-18] MEDS: PIPER-TAZO 3.375 GM IV (PMX) 100 ML IVPB ×3 (05:33→21:33)
[2018-09-18] MEDS: PANTOPRAZOLE 40 MG INJ IV (05:33)
[2018-09-18] MEDS: FUROSEMIDE 20 MG INJ IV (05:33)
[2018-09-18] MEDS: POTASSIUM CHLORIDE 20 MEQ POWDER FOR ORAL SOLN PO (06:32)
[2018-09-18 07:27] LABS: BAND NEUTROPHILS #M 2.7 10^3/ul (0.0-0.6); BAND NEUTROPHILS % (M) 34 % (0-4); LYMPHOCYTES #M 0.5 10^3/ul (0.8-2.9); LYMPHOCYTES % (M) 7 % (15-51); MONOCYTES % (M) 1 % (0-11); PLATELET ESTIMATE DECREASED; SEG NEUT #M 4.9 10^3/ul (1.6-7.5); SEGMENTED NEUTROPHILS (M) % 58 % (39-77); SMUDGE%M 2 % (0-0)
[2018-09-18] MEDS: ASPIRIN 300 MG SUPP PR (10:11)
[2018-09-18] MEDS: morphine 2 MG INJ IV (10:11)
[2018-09-18] MEDS: PROPOFOL 100 ML IV ×3 (11:06→23:04)
[2018-09-18] MEDS: POTASSIUM CHLORIDE 100 ML IVPB ×2 (11:06→13:02)
[2018-09-19] MEDS: INSULIN ASPART [NOVOLOG] 3 ML PEN SC ×6 (01:00→20:46)
[2018-09-19] MEDS: ALBUTEROL HFA 8 GM INHALER INH ×4 (01:56→19:57)
[2018-09-19] MEDS: PROPOFOL 100 ML IV ×2 (03:59→22:44)
[2018-09-19 04:29] LABS: WHITE BLOOD COUNT 7.9 10^3/ul (4.8-10.8)
[2018-09-19 04:29] LABS: ABNORMAL IP MESSAGE 1; HEMATOCRIT 26.9 % (37.0-47.0); HEMOGLOBIN 8.9 g/dl (12.0-16.0); MEAN CORPUSCULAR HEMOGLOBIN 30.5 pg (29.0-33.0); MEAN CORPUSCULAR HGB CONC 33.1 g/dl (32.0-37.0); MEAN CORPUSCULAR VOLUME 92.1 fl (82.0-101.0); MEAN PLATELET VOLUME 11.6 fl (7.4-10.4); RED BLOOD COUNT 2.92 10^6/ul (4.20-5.40); RED CELL DISTRIBUTION WIDTH 14.6 % (11.5-14.5)
[2018-09-19 04:45] LABS: POSITIVE DIFF @See below
[2018-09-19 04:46] LABS: ADD MAN DIFF? YES; PLATELET COUNT 84 10^3/UL (140-415)
[2018-09-19 04:51] LABS: ALANINE AMINOTRANSFERASE 130 IU/L (13-69); ALBUMIN 2.8 g/dl (3.3-4.9); ALKALINE PHOSPHATASE 162 IU/L (42-121); ANION GAP 7 (5-13); ASPARTATE AMINO TRANSFERASE 119 IU/L (15-46); BILIRUBIN,INDIRECT 0.4 mg/dl (0-1.1); BILIRUBIN,TOTAL 0.4 mg/dl (0.2-1.3); BLOOD UREA NITROGEN 28 mg/dl (7-20); CALCIUM 8.7 mg/dl (8.4-10.2); CARBON DIOXIDE 30 mmol/L (21-31); CHLORIDE 108 mmol/L (97-110); CREATININE 1.23 mg/dl (0.44-1.00); Estimated GFR 53 mL/min (>60); GLUCOSE 109 mg/dl (70-220); MAGNESIUM 2.3 mg/dl (1.7-2.5); POTASSIUM 3.5 mmol/L (3.5-5.1); SODIUM 145 mmol/L (135-144); TOTAL PROTEIN 5.6 g/dl (6.1-8.1)
[2018-09-19 04:56] LABS: B-TYPE NATRIURETIC PEPTIDE 2210 PG/ML (0-125)
[2018-09-19 05:26] LABS: BAND NEUTROPHILS #M 0.5 10^3/ul (0.0-0.6); BAND NEUTROPHILS % (M) 7 % (0-4); EOSINOPHILS % (M) 2 % (0-7); ERYTHROBLAST% (NRBC) (M) 1 % (0-0); GIANT THROMBO% (M) 2 % (0-0); LYMPHOCYTES #M 0.9 10^3/ul (0.8-2.9); LYMPHOCYTES % (M) 12 % (15-51); MONOCYTES % (M) 1 % (0-11); PLATELET ESTIMATE DECREASED; POLYCHROMASIA 1+ (0-0); REACTIVE LYMPHOCYTES% (M) 1 % (0-0); SEG NEUT #M 6.1 10^3/ul (1.6-7.5); SEGMENTED NEUTROPHILS (M) % 77 % (39-77); SMUDGE%M 5 % (0-0)
[2018-09-19] MEDS: PANTOPRAZOLE 40 MG INJ IV (05:31)
[2018-09-19] MEDS: FUROSEMIDE 20 MG INJ IV (05:32)
[2018-09-19] MEDS: PIPER-TAZO 3.375 GM IV (PMX) 100 ML IVPB ×3 (05:32→21:45)
[2018-09-19] MEDS: POTASSIUM CHLORIDE 100 ML IVPB ×2 (09:25→11:30)
[2018-09-19] MEDS: ASPIRIN 81 MG TAB NGT (09:25)
[2018-09-19] MEDS: hydrALAzine 20 MG INJ IV (13:05)
[2018-09-19] MEDS: DEXMEDETOMIDINE HCL 200 MCG in SOD CHLORIDE 0.9% 48 ML IV ×2 (14:18→22:44)
[2018-09-20] MEDS: INSULIN ASPART [NOVOLOG] 3 ML PEN SC ×2 (01:00→05:00)
[2018-09-20] MEDS: ALBUTEROL HFA 8 GM INHALER INH ×4 (01:17→19:18)
[2018-09-20] MEDS: DEXMEDETOMIDINE HCL 200 MCG in SOD CHLORIDE 0.9% 48 ML IV ×4 (01:54→23:52)
[2018-09-20 04:56] LABS: WHITE BLOOD COUNT 6.3 10^3/ul (4.8-10.8)
[2018-09-20 04:56] LABS: ABNORMAL IP MESSAGE 1; HEMATOCRIT 27.3 % (37.0-47.0); HEMOGLOBIN 8.9 g/dl (12.0-16.0); MEAN CORPUSCULAR HEMOGLOBIN 30.2 pg (29.0-33.0); MEAN CORPUSCULAR HGB CONC 32.6 g/dl (32.0-37.0); MEAN CORPUSCULAR VOLUME 92.5 fl (82.0-101.0); MEAN PLATELET VOLUME 12.1 fl (7.4-10.4); NUCLEATED RED BLOOD CELLS% 0.3 /100WBC (0.0-0.0); PLATELET COUNT 81 10^3/UL (140-415); RED BLOOD COUNT 2.95 10^6/ul (4.20-5.40); RED CELL DISTRIBUTION WIDTH 14.2 % (11.5-14.5)
[2018-09-20 05:02] LABS: ADD MAN DIFF? YES; POSITIVE DIFF @See below
[2018-09-20 05:21] LABS: ALANINE AMINOTRANSFERASE 114 IU/L (13-69); ALBUMIN 2.9 g/dl (3.3-4.9); ALBUMIN/GLOBULIN RATIO 1.03; ALKALINE PHOSPHATASE 182 IU/L (42-121); ANION GAP 5 (5-13); ASPARTATE AMINO TRANSFERASE 85 IU/L (15-46); BILIRUBIN,INDIRECT 0.5 mg/dl (0-1.1); BILIRUBIN,TOTAL 0.5 mg/dl (0.2-1.3); BLOOD UREA NITROGEN 32 mg/dl (7-20); CALCIUM 8.9 mg/dl (8.4-10.2); CARBON DIOXIDE 29 mmol/L (21-31); CHLORIDE 110 mmol/L (97-110); CREATININE 1.13 mg/dl (0.44-1.00); Estimated GFR 59 mL/min (>60); GLUCOSE 95 mg/dl (70-220); MAGNESIUM 2.1 mg/dl (1.7-2.5); POTASSIUM 3.5 mmol/L (3.5-5.1); SODIUM 144 mmol/L (135-144); TOTAL PROTEIN 5.7 g/dl (6.1-8.1)
[2018-09-20] MEDS: PANTOPRAZOLE 40 MG INJ IV (06:12)
[2018-09-20] MEDS: PIPER-TAZO 3.375 GM IV (PMX) 100 ML IVPB ×3 (06:12→21:33)
[2018-09-20] MEDS: FUROSEMIDE 20 MG INJ IV ×2 (06:12→15:09)
[2018-09-20 07:53] LABS: BAND NEUTROPHILS #M 0.3 10^3/ul (0.0-0.6); BAND NEUTROPHILS % (M) 5 % (0-4); EOSINOPHILS % (M) 2 % (0-7); ERYTHROBLAST% (NRBC) (M) 4 % (0-0); GIANT THROMBO% (M) 2 % (0-0); LYMPHOCYTES #M 1.4 10^3/ul (0.8-2.9); LYMPHOCYTES % (M) 23 % (15-51); MONOCYTE #M 0.3 10^3/ul (0.3-0.9); MONOCYTES % (M) 5 % (0-11); PLATELET ESTIMATE DECREASED; SEG NEUT #M 4.1 10^3/ul (1.6-7.5); SEGMENTED NEUTROPHILS (M) % 65 % (39-77); SMUDGE%M 10 % (0-0)
[2018-09-20] MEDS: POTASSIUM CHLORIDE 20 MEQ POWDER FOR ORAL SOLN PO ×2 (08:53→15:09)
[2018-09-20] MEDS: ASPIRIN 81 MG TAB NGT (08:53)
[2018-09-20 14:44] LABS: POTASSIUM 3.7 mmol/L (3.5-5.1)
[2018-09-20] MEDS: PROPOFOL 100 ML IV (17:44)
[2018-09-20] MEDS ORDERED: PHENYLephrine 20MG IN 250 ML 250 ML (22:14)
[2018-09-21] MEDS: ALBUTEROL HFA 8 GM INHALER INH ×4 (01:09→20:24)
[2018-09-21] MEDS: PROPOFOL 100 ML IV (03:30)
[2018-09-21] MEDS: PANTOPRAZOLE 40 MG INJ IV (05:10)
[2018-09-21] MEDS: PIPER-TAZO 3.375 GM IV (PMX) 100 ML IVPB ×3 (05:10→21:09)
[2018-09-21] MEDS: FUROSEMIDE 20 MG INJ IV (05:11)
[2018-09-21 05:26] LABS: ABNORMAL IP MESSAGE 1; HEMATOCRIT 26.7 % (37.0-47.0); HEMOGLOBIN 8.7 g/dl (12.0-16.0); MEAN CORPUSCULAR HEMOGLOBIN 29.8 pg (29.0-33.0); MEAN CORPUSCULAR HGB CONC 32.6 g/dl (32.0-37.0); MEAN CORPUSCULAR VOLUME 91.4 fl (82.0-101.0); MEAN PLATELET VOLUME 11.8 fl (7.4-10.4); NUCLEATED RED BLOOD CELLS% 0.4 /100WBC (0.0-0.0); PLATELET COUNT 90 10^3/UL (140-415); RED BLOOD COUNT 2.92 10^6/ul (4.20-5.40); RED CELL DISTRIBUTION WIDTH 14.3 % (11.5-14.5)
[2018-09-21 05:26] LABS: WHITE BLOOD COUNT 7.1 10^3/ul (4.8-10.8)
[2018-09-21 05:28] LABS: POSITIVE DIFF @See below
[2018-09-21 05:29] LABS: ADD MAN DIFF? YES
[2018-09-21 05:52] LABS: ALANINE AMINOTRANSFERASE 101 IU/L (13-69); ALBUMIN 2.8 g/dl (3.3-4.9); ALBUMIN/GLOBULIN RATIO 0.96; ALKALINE PHOSPHATASE 180 IU/L (42-121); ANION GAP 7 (5-13); ASPARTATE AMINO TRANSFERASE 66 IU/L (15-46); BILIRUBIN,INDIRECT 0.3 mg/dl (0-1.1); BILIRUBIN,TOTAL 0.3 mg/dl (0.2-1.3); BLOOD UREA NITROGEN 36 mg/dl (7-20); CALCIUM 8.6 mg/dl (8.4-10.2); CARBON DIOXIDE 31 mmol/L (21-31); CHLORIDE 110 mmol/L (97-110); CREATININE 1.06 mg/dl (0.44-1.00); Estimated GFR > 60 mL/min (>60); GLUCOSE 129 mg/dl (70-220); MAGNESIUM 2.1 mg/dl (1.7-2.5); POTASSIUM 3.2 mmol/L (3.5-5.1); SODIUM 148 mmol/L (135-144); TOTAL PROTEIN 5.7 g/dl (6.1-8.1)
[2018-09-21] MEDS: POTASSIUM CHLORIDE 20 MEQ POWDER FOR ORAL SOLN PO ×2 (06:41→23:38)
[2018-09-21 07:16] LABS: ANISOCYTOSIS 1+ (0-0); BAND NEUTROPHILS #M 1.2 10^3/ul (0.0-0.6); BAND NEUTROPHILS % (M) 18 % (0-4); GIANT THROMBO% (M) 7 % (0-0); LYMPHOCYTES #M 0.6 10^3/ul (0.8-2.9); LYMPHOCYTES % (M) 9 % (15-51); MICROCYTOSIS 1+ (0-0); MONOCYTE #M 0.4 10^3/ul (0.3-0.9); MONOCYTES % (M) 7 % (0-11); OVALOCYTES 1+ (0-0); PLATELET ESTIMATE DECREASED; SEG NEUT #M 4.8 10^3/ul (1.6-7.5); SEGMENTED NEUTROPHILS (M) % 66 % (39-77); SMUDGE%M 3 % (0-0)
[2018-09-21] MEDS: DEXMEDETOMIDINE HCL 200 MCG in SOD CHLORIDE 0.9% 48 ML IV ×4 (09:10→23:38)
[2018-09-21] MEDS: ASPIRIN 81 MG TAB NGT (09:21)
[2018-09-21] MEDS: FENTAnyl (DRIP) 1000 mcg/100mL 100 ML IV (09:42)
[2018-09-21] MEDS ORDERED: ALBUTEROL/IPRATROPIUM (NEB) 3 ML AMP HHN ×2 (10:00→14:00)
[2018-09-21] MEDS: IPRATROPIUM (HFA) 12.9 GM INHALER INH ×2 (14:14→20:24)
[2018-09-21] MEDS: hydrALAzine 20 MG INJ IV ×2 (15:09→16:33)
[2018-09-21 19:07] LABS: ANION GAP 7 (5-13); BLOOD UREA NITROGEN 29 mg/dl (7-20); CALCIUM 8.6 mg/dl (8.4-10.2); CARBON DIOXIDE 27 mmol/L (21-31); CHLORIDE 112 mmol/L (97-110); CREATININE 0.92 mg/dl (0.44-1.00); Estimated GFR > 60 mL/min (>60); GLUCOSE 125 mg/dl (70-220); POTASSIUM 3.2 mmol/L (3.5-5.1); SODIUM 146 mmol/L (135-144)
[2018-09-21] MEDS: BUDESONIDE (NEB) 0.5MG/2ML AMP HHN (20:24)
[2018-09-22] MEDS: FENTAnyl (DRIP) 1000 mcg/100mL 100 ML IV ×2 (02:31→17:30)
[2018-09-22] MEDS: DEXMEDETOMIDINE HCL 200 MCG in SOD CHLORIDE 0.9% 48 ML IV ×2 (03:00→05:36)
[2018-09-22] MEDS: hydrALAzine 20 MG INJ IV (04:15)
[2018-09-22 04:37] LABS: ADD MAN DIFF? NO
[2018-09-22 04:40] LABS: WHITE BLOOD COUNT 7.2 10^3/ul (4.8-10.8)
[2018-09-22 04:40] LABS: ABNORMAL IP MESSAGE 1; BASOPHILS % 0.3 % (0.0-2.0); EOSINOPHILS # 0.2 10^3/ul (0.0-0.5); EOSINOPHILS % 2.5 % (0.0-7.0); HEMATOCRIT 27.6 % (37.0-47.0); LYMPHOCYTES # 0.6 10^3/ul (0.8-2.9); LYMPHOCYTES % 7.7 % (15.0-51.0); MEAN CORPUSCULAR HGB CONC 32.6 g/dl (32.0-37.0); MEAN PLATELET VOLUME 11.5 fl (7.4-10.4); MONOCYTE # 0.6 10^3/ul (0.3-0.9); MONOCYTES % 7.8 % (0.0-11.0); NEUTROPHIL # 5.6 10^3/ul (1.6-7.5); NEUTROPHILS % 78.6 % (39.0-77.0); PLATELET COUNT 112 10^3/UL (140-415); RED CELL DISTRIBUTION WIDTH 14.3 % (11.5-14.5)
[2018-09-22 04:44] LABS: POSITIVE DIFF @See below
[2018-09-22 04:58] LABS: CREATINE KINASE 137 IU/L (23-200)
[2018-09-22 05:02] LABS: INR 0.93; PROTIME 12.6 Sec (11.9-14.9)
[2018-09-22 05:06] LABS: ALANINE AMINOTRANSFERASE 89 IU/L (13-69); ALBUMIN 2.7 g/dl (3.3-4.9); ALBUMIN/GLOBULIN RATIO 1.17; ALKALINE PHOSPHATASE 189 IU/L (42-121); ANION GAP 5 (5-13); ASPARTATE AMINO TRANSFERASE 50 IU/L (15-46); BILIRUBIN,INDIRECT 0.2 mg/dl (0-1.1); BILIRUBIN,TOTAL 0.2 mg/dl (0.2-1.3); BLOOD UREA NITROGEN 28 mg/dl (7-20); CALCIUM 8.5 mg/dl (8.4-10.2); CARBON DIOXIDE 29 mmol/L (21-31); CHLORIDE 113 mmol/L (97-110); CREATININE 0.88 mg/dl (0.44-1.00); Estimated GFR > 60 mL/min (>60); GLUCOSE 127 mg/dl (70-220); MAGNESIUM 2.1 mg/dl (1.7-2.5); POTASSIUM 3.7 mmol/L (3.5-5.1); SODIUM 147 mmol/L (135-144)
[2018-09-22] MEDS: FUROSEMIDE 20 MG INJ IV (05:07)
[2018-09-22] MEDS: PIPER-TAZO 3.375 GM IV (PMX) 100 ML IVPB ×4 (05:07→21:19)
[2018-09-22] MEDS: PANTOPRAZOLE 40 MG INJ IV (05:07)
[2018-09-22 05:09] LABS: B-TYPE NATRIURETIC PEPTIDE 1260 PG/ML (0-125)
[2018-09-22 05:11] LABS: CK INDEX 0.6; CK-MB 0.87 ng/ml (0.0-2.4); TROPONIN-I 0.013 ng/ml (0.000-0.120)
[2018-09-22] MEDS ORDERED: IODIXANOL LOCM 100 ML BTL (07:15)
[2018-09-22] MEDS ORDERED: LIDOCAINE 1% (MDV) 20 ML INJ (07:15)
[2018-09-22] MEDS ORDERED: MIDAZOLAM 1 MG/ML 2 ML INJ (07:32)
[2018-09-22] MEDS: ALBUTEROL HFA 8 GM INHALER INH ×3 (08:00→19:38)
[2018-09-22] MEDS: IPRATROPIUM (HFA) 12.9 GM INHALER INH ×3 (08:00→19:38)
[2018-09-22] MEDS ORDERED: NITROGLYCERIN (IC) 100 MCG/ML INJ (08:13)
[2018-09-22] MEDS: LORAZEPAM 4 MG/ML VIAL IV (09:26)
[2018-09-22] MEDS ORDERED: VANCOMYCIN IV PER PHARMACY XX (09:30)
[2018-09-22] MEDS: ASPIRIN 81 MG TAB NGT (09:34)
[2018-09-22] MEDS: POTASSIUM CHLORIDE 20 MEQ POWDER FOR ORAL SOLN NGT (09:34)
[2018-09-22] MEDS: SOD CHLORIDE 0.9% 1,000 ML IV (09:40)
[2018-09-22 09:52] LABS: AADO2 Arterial 94.3 mmHg (7.0-24.0); Allen Test ACCEPTAB; Arterial Base Excess 1.8 mmol/L (-3.0-3); Arterial Blood Gas Oxygen Sat 93.4 mmHG (95.0-98.0); Arterial COHb 0.3 % (0.0-3.0); Arterial Fraction of Oxyhgb 92.7 % (93.0-99.0); Arterial HCO3 26.3 mmol/L (22.0-26.0); Arterial MetHb 0.4 % (0.0-1.5); Arterial pCO2 40.8 mmhg (35-45); Blood Gas PS 12; MODE VENT - SIMV; Site Right Radial
[2018-09-22] MEDS: BUDESONIDE (NEB) 0.5MG/2ML AMP HHN ×2 (09:53→20:59)
[2018-09-22] MEDS ORDERED: DEXMEDETOMIDINE HCL 200 MCG in SOD CHLORIDE 0.9% 48 ML IV (10:30)
[2018-09-22] MEDS: SOD CHLORIDE 0.45% 1,000 ML IV (11:11)
[2018-09-22] MEDS: PROPOFOL 100 ML IV ×2 (11:12→21:40)
[2018-09-22] MEDS: VANCOMYCIN HCL 1.25 GM in SOD CHLORIDE 0.9% 250 ML IVPB (11:12)
[2018-09-22] MEDS: ISOSORBIDE DINITRATE 20 MG TAB NGT ×3 (11:22→21:19)
[2018-09-22] MEDS: VANCOMYCIN 500 MG (PMX) 100 ML IVPB (23:10)
[2018-09-23] MEDS: SOD CHLORIDE 0.45% 1,000 ML IV ×2 (00:48→14:36)
[2018-09-23] MEDS: FENTAnyl (DRIP) 1000 mcg/100mL 100 ML IV (02:49)
[2018-09-23 05:16] LABS: ADD MAN DIFF? NO
[2018-09-23] MEDS: PIPER-TAZO 3.375 GM IV (PMX) 100 ML IVPB ×3 (05:24→21:11)
[2018-09-23] MEDS: PANTOPRAZOLE 40 MG INJ IV (05:24)
[2018-09-23] MEDS: FUROSEMIDE 20 MG INJ IV (05:25)
[2018-09-23 05:28] LABS: ABNORMAL IP MESSAGE 1; BASOPHILS % 0.2 % (0.0-2.0); EOSINOPHILS # 0.1 10^3/ul (0.0-0.5); EOSINOPHILS % 1.3 % (0.0-7.0); HEMATOCRIT 24.4 % (37.0-47.0); HEMOGLOBIN 7.8 g/dl (12.0-16.0); LYMPHOCYTES # 0.4 10^3/ul (0.8-2.9); LYMPHOCYTES % 4.9 % (15.0-51.0); MEAN CORPUSCULAR HEMOGLOBIN 30.1 pg (29.0-33.0); MEAN CORPUSCULAR VOLUME 94.2 fl (82.0-101.0); MEAN PLATELET VOLUME 11.7 fl (7.4-10.4); MONOCYTE # 0.5 10^3/ul (0.3-0.9); MONOCYTES % 5.2 % (0.0-11.0); NEUTROPHIL # 7.6 10^3/ul (1.6-7.5); NEUTROPHILS % 86.9 % (39.0-77.0); PLATELET COUNT 142 10^3/UL (140-415); RED BLOOD COUNT 2.59 10^6/ul (4.20-5.40); RED CELL DISTRIBUTION WIDTH 14.6 % (11.5-14.5)
[2018-09-23 05:28] LABS: WHITE BLOOD COUNT 8.7 10^3/ul (4.8-10.8)
[2018-09-23 05:54] LABS: POSITIVE DIFF @See below
[2018-09-23 06:18] LABS: ALANINE AMINOTRANSFERASE 81 IU/L (13-69); ALBUMIN 2.7 g/dl (3.3-4.9); ALBUMIN/GLOBULIN RATIO 1.08; ALKALINE PHOSPHATASE 155 IU/L (42-121); ANION GAP 4 (5-13); ASPARTATE AMINO TRANSFERASE 59 IU/L (15-46); BILIRUBIN,INDIRECT 0.1 mg/dl (0-1.1); BILIRUBIN,TOTAL 0.1 mg/dl (0.2-1.3); BLOOD UREA NITROGEN 26 mg/dl (7-20); CALCIUM 8.3 mg/dl (8.4-10.2); CARBON DIOXIDE 29 mmol/L (21-31); CHLORIDE 112 mmol/L (97-110); Estimated GFR > 60 mL/min (>60); GLUCOSE 125 mg/dl (70-220); MAGNESIUM 2.1 mg/dl (1.7-2.5); SODIUM 145 mmol/L (135-144); TOTAL PROTEIN 5.2 g/dl (6.1-8.1)
[2018-09-23 06:22] LABS: POTASSIUM 3.5 mmol/L (3.5-5.1)
[2018-09-23 06:43] LABS: B-TYPE NATRIURETIC PEPTIDE 1110 PG/ML (0-125)
[2018-09-23] MEDS: ALBUTEROL HFA 8 GM INHALER INH (08:00)
[2018-09-23] MEDS: IPRATROPIUM (HFA) 12.9 GM INHALER INH (08:00)
[2018-09-23] MEDS: BUDESONIDE (NEB) 0.5MG/2ML AMP HHN ×2 (08:55→20:16)
[2018-09-23] MEDS: POTASSIUM CHLORIDE 20 MEQ POWDER FOR ORAL SOLN NGT (09:33)
[2018-09-23] MEDS: ISOSORBIDE DINITRATE 20 MG TAB NGT ×3 (09:35→21:11)
[2018-09-23] MEDS: SPIRONOLACTONE 25 MG TAB NGT (09:35)
[2018-09-23] MEDS: PROPOFOL 100 ML IV (09:36)
[2018-09-23] MEDS: hydrALAzine 20 MG INJ IV ×2 (10:09→14:34)
[2018-09-23 10:11] LABS: ADD UMIC YES; UR ASCORBIC ACID NEGATIVE (NEGATIVE); UR BACTERIA FEW /HPF (NONE SEEN); UR BILIRUBIN (Dip) NEGATIVE (NEGATIVE); UR BLOOD (Dip) 3+ mg/dL (NEGATIVE); UR CLARITY CLEAR (CLEAR); UR COLOR STRAW (YELLOW); UR GLUCOSE (Dip) NEGATIVE (NEGATIVE); UR KETONES (Dip) NEGATIVE (NEGATIVE); UR LEUKOCYTE ESTERASE (Dip) NEGATIVE Leu/ul (NEGATIVE); UR MUCUS FEW /HPF (NONE SEEN); UR NITRITE (Dip) NEGATIVE (NEGATIVE); UR RBC > 182 /HPF (0-5); UR TOTAL PROTEIN (Dip) NEGATIVE (NEGATIVE); UR UROBILINOGEN (Dip) NEGATIVE (NEGATIVE); UR WBC 3 /HPF (0-5)
[2018-09-23] MEDS: VANCOMYCIN 500 MG (PMX) 100 ML IVPB (11:59)
[2018-09-23 12:14] LABS: AADO2 Arterial 137.6 mmHg (7.0-24.0); Allen Test ACCEPTAB; Arterial Base Excess 4.9 mmol/L (-3.0-3); Arterial Blood Gas Oxygen Sat 97.2 mmHG (95.0-98.0); Arterial COHb 0.3 % (0.0-3.0); Arterial Fraction of Oxyhgb 96.4 % (93.0-99.0); Arterial HCO3 29.2 mmol/L (22.0-26.0); Arterial MetHb 0.5 % (0.0-1.5); Arterial pCO2 42.3 mmhg (35-45); Blood Gas PS 12; MODE VENT - CPAP; Site Right Radial
[2018-09-23 12:31] LABS: IMMEDIATE SPIN CROSSMATCH 1 1
[2018-09-23] MEDS ORDERED: HALOPERIDOL 5 MG INJ IM (16:00)
[2018-09-23] MEDS: LISINOPRIL 20 MG TAB NGT (16:03)
[2018-09-23] MEDS: LABETALOL HCL 20MG INJ IV (16:03)
[2018-09-23 18:48] LABS: ADD MAN DIFF? NO
[2018-09-23 18:51] LABS: WHITE BLOOD COUNT 12.7 10^3/ul (4.8-10.8)
[2018-09-23 18:51] LABS: ABNORMAL IP MESSAGE 1; BASOPHILS % 0.3 % (0.0-2.0); EOSINOPHILS # 0.1 10^3/ul (0.0-0.5); EOSINOPHILS % 0.7 % (0.0-7.0); HEMATOCRIT 32.5 % (37.0-47.0); HEMOGLOBIN 10.5 g/dl (12.0-16.0); LYMPHOCYTES # 0.5 10^3/ul (0.8-2.9); LYMPHOCYTES % 4.2 % (15.0-51.0); MEAN CORPUSCULAR HEMOGLOBIN 29.7 pg (29.0-33.0); MEAN CORPUSCULAR HGB CONC 32.3 g/dl (32.0-37.0); MEAN CORPUSCULAR VOLUME 92.1 fl (82.0-101.0); MEAN PLATELET VOLUME 11.1 fl (7.4-10.4); MONOCYTE # 0.6 10^3/ul (0.3-0.9); NEUTROPHIL # 11.1 10^3/ul (1.6-7.5); NEUTROPHILS % 87.3 % (39.0-77.0); PLATELET COUNT 208 10^3/UL (140-415); RED BLOOD COUNT 3.53 10^6/ul (4.20-5.40); RED CELL DISTRIBUTION WIDTH 15.1 % (11.5-14.5)
[2018-09-23 18:53] LABS: POSITIVE DIFF @See below
[2018-09-23 19:24] LABS: ANION GAP 6 (5-13); BLOOD UREA NITROGEN 19 mg/dl (7-20); CALCIUM 8.7 mg/dl (8.4-10.2); CARBON DIOXIDE 31 mmol/L (21-31); CHLORIDE 106 mmol/L (97-110); CREATININE 0.78 mg/dl (0.44-1.00); Estimated GFR > 60 mL/min (>60); GLUCOSE 145 mg/dl (70-220); POTASSIUM 3.6 mmol/L (3.5-5.1); SODIUM 143 mmol/L (135-144)
[2018-09-23] MEDS: ALBUTEROL/IPRATROPIUM (NEB) 3 ML AMP HHN (20:11)
[2018-09-23 20:51] LABS: OCCULT BLOOD STOOL NEGATIVE (NEGATIVE)
[2018-09-23 22:41] LABS: VANCOMYCIN,TROUGH 7.4 ug/ml (10.0-20.0)
[2018-09-23] MEDS: VANCOMYCIN 1 GM 250 ML IVPB (23:47)
[2018-09-24] MEDS: hydrALAzine 20 MG INJ IV (01:04)
[2018-09-24] MEDS: ALBUTEROL/IPRATROPIUM (NEB) 3 ML AMP HHN ×4 (01:44→20:02)
[2018-09-24] MEDS: PIPER-TAZO 3.375 GM IV (PMX) 100 ML IVPB (05:22)
[2018-09-24] MEDS: PANTOPRAZOLE 40 MG INJ IV (05:22)
[2018-09-24] MEDS: FUROSEMIDE 20 MG INJ IV (05:22)
[2018-09-24 05:23] LABS: WHITE BLOOD COUNT 13.9 10^3/ul (4.8-10.8)
[2018-09-24 05:23] LABS: HEMATOCRIT 33.3 % (37.0-47.0); HEMOGLOBIN 11.1 g/dl (12.0-16.0); MEAN CORPUSCULAR HEMOGLOBIN 30.2 pg (29.0-33.0); MEAN CORPUSCULAR HGB CONC 33.3 g/dl (32.0-37.0); MEAN CORPUSCULAR VOLUME 90.7 fl (82.0-101.0); PLATELET COUNT 239 10^3/UL (140-415); RED BLOOD COUNT 3.67 10^6/ul (4.20-5.40); RED CELL DISTRIBUTION WIDTH 14.8 % (11.5-14.5)
[2018-09-24 05:42] LABS: ADD MAN DIFF? YES; POSITIVE DIFF @See below
[2018-09-24 05:58] LABS: ANION GAP 9 (5-13); BLOOD UREA NITROGEN 15 mg/dl (7-20); CALCIUM 8.5 mg/dl (8.4-10.2); CARBON DIOXIDE 29 mmol/L (21-31); CHLORIDE 101 mmol/L (97-110); CREATININE 0.66 mg/dl (0.44-1.00); Estimated GFR > 60 mL/min (>60); GLUCOSE 95 mg/dl (70-220); MAGNESIUM 1.8 mg/dl (1.7-2.5); PHOSPHORUS 2.7 mg/dl (2.5-4.9); POTASSIUM 3.7 mmol/L (3.5-5.1); SODIUM 139 mmol/L (135-144)
[2018-09-24 07:49] LABS: AADO2 Arterial 79.4 mmHg (7.0-24.0); Allen Test ACCEPTAB; Arterial Base Excess 4.9 mmol/L (-3.0-3); Arterial Blood Gas Oxygen Sat 96.9 mmHG (95.0-98.0); Arterial COHb 0.1 % (0.0-3.0); Arterial Fraction of Oxyhgb 96.4 % (93.0-99.0); Arterial HCO3 28.4 mmol/L (22.0-26.0); Arterial MetHb 0.4 % (0.0-1.5); Arterial pCO2 38.2 mmhg (35-45); MODE NASAL CANNULA; Site Right Radial
[2018-09-24 07:55] LABS: ANISOCYTOSIS 1+ (0-0); BAND NEUTROPHILS #M 1.5 10^3/ul (0.0-0.6); BAND NEUTROPHILS % (M) 11 % (0-4); BASOPHIL #M 0.1 10^3/ul (0.0-0.0); BASOPHILS % (M) 1 % (0-2); EOSINOPHILS % (M) 1 % (0-7); LYMPHOCYTES #M 0.6 10^3/ul (0.8-2.9); LYMPHOCYTES % (M) 5 % (15-51); MICROCYTOSIS 1+ (0-0); MONOCYTE #M 0.5 10^3/ul (0.3-0.9); MONOCYTES % (M) 4 % (0-11); PLATELET ESTIMATE NORMAL; POLYCHROMASIA 1+ (0-0); SEG NEUT #M 11.1 10^3/ul (1.6-7.5); SEGMENTED NEUTROPHILS (M) % 78 % (39-77); SMUDGE%M 1 % (0-0)
[2018-09-24] MEDS: BUDESONIDE (NEB) 0.5MG/2ML AMP HHN ×2 (07:56→20:02)
[2018-09-24] MEDS: SPIRONOLACTONE 25 MG TAB NGT (09:44)
[2018-09-24] MEDS: POTASSIUM CHLORIDE 20 MEQ POWDER FOR ORAL SOLN PO ×2 (09:44→14:18)
[2018-09-24] MEDS: LISINOPRIL 20 MG TAB NGT ×2 (09:45→20:41)
[2018-09-24] MEDS: ISOSORBIDE DINITRATE 20 MG TAB NGT ×3 (09:45→20:41)
[2018-09-24] MEDS: MAGNESIUM SULFATE 3 GM in DEXTROSE 5% 100 ML IVPB (09:47)
[2018-09-24] MEDS: ACETAMINOPHEN 650MG/20.3ML CUP NGT (11:20)
[2018-09-24] MEDS: VANCOMYCIN 1 GM 250 ML IVPB (11:20)
[2018-09-24] MEDS: HYDROCODONE/APAP (5/325) TAB PO ×2 (15:24→23:17)
[2018-09-25] MEDS: hydrALAzine 20 MG INJ IV ×2 (01:07→15:38)
[2018-09-25] MEDS: ALBUTEROL/IPRATROPIUM (NEB) 3 ML AMP HHN ×4 (02:46→19:44)
[2018-09-25] MEDS: PANTOPRAZOLE 40 MG INJ IV (05:46)
[2018-09-25] MEDS: FUROSEMIDE 20 MG INJ IV (05:47)
[2018-09-25 06:27] LABS: ADD MAN DIFF? NO
[2018-09-25 06:29] LABS: BASOPHILS % 0.4 % (0.0-2.0); EOSINOPHILS # 0.1 10^3/ul (0.0-0.5); HEMATOCRIT 34.8 % (37.0-47.0); HEMOGLOBIN 11.6 g/dl (12.0-16.0); LYMPHOCYTES # 0.7 10^3/ul (0.8-2.9); LYMPHOCYTES % 6.2 % (15.0-51.0); MEAN CORPUSCULAR HGB CONC 33.3 g/dl (32.0-37.0); MEAN CORPUSCULAR VOLUME 89.9 fl (82.0-101.0); MEAN PLATELET VOLUME 10.5 fl (7.4-10.4); MONOCYTE # 0.9 10^3/ul (0.3-0.9); MONOCYTES % 7.7 % (0.0-11.0); NEUTROPHIL # 9.2 10^3/ul (1.6-7.5); NEUTROPHILS % 83.4 % (39.0-77.0); PLATELET COUNT 324 10^3/UL (140-415); RED BLOOD COUNT 3.87 10^6/ul (4.20-5.40); RED CELL DISTRIBUTION WIDTH 14.4 % (11.5-14.5)
[2018-09-25 06:29] LABS: WHITE BLOOD COUNT 11.1 10^3/ul (4.8-10.8)
[2018-09-25 07:13] LABS: ALANINE AMINOTRANSFERASE 85 IU/L (13-69); ALBUMIN 3.4 g/dl (3.3-4.9); ALKALINE PHOSPHATASE 150 IU/L (42-121); ANION GAP 8 (5-13); ASPARTATE AMINO TRANSFERASE 49 IU/L (15-46); BILIRUBIN,INDIRECT 0.5 mg/dl (0-1.1); BILIRUBIN,TOTAL 0.5 mg/dl (0.2-1.3); BLOOD UREA NITROGEN 14 mg/dl (7-20); CALCIUM 8.7 mg/dl (8.4-10.2); CARBON DIOXIDE 29 mmol/L (21-31); CHLORIDE 103 mmol/L (97-110); CREATININE 0.77 mg/dl (0.44-1.00); Estimated GFR > 60 mL/min (>60); GLUCOSE 97 mg/dl (70-220); MAGNESIUM 2.2 mg/dl (1.7-2.5); POTASSIUM 3.3 mmol/L (3.5-5.1); SODIUM 140 mmol/L (135-144); TOTAL PROTEIN 6.8 g/dl (6.1-8.1)
[2018-09-25] MEDS: BUDESONIDE (NEB) 0.5MG/2ML AMP HHN ×2 (07:56→19:44)
[2018-09-25] MEDS: ACETAMINOPHEN 650MG/20.3ML CUP NGT (08:39)
[2018-09-25] MEDS: LISINOPRIL 20 MG TAB NGT ×2 (08:40→20:17)
[2018-09-25] MEDS: SPIRONOLACTONE 25 MG TAB NGT (08:40)
[2018-09-25] MEDS: ISOSORBIDE DINITRATE 20 MG TAB NGT ×3 (08:40→20:17)
[2018-09-25] MEDS: SOD CHLORIDE 0.9% 100 ML (12:53)
[2018-09-25] MEDS: IOHEXOL 100 ML (12:54)
[2018-09-25] MEDS: POTASSIUM CHLORIDE 20 MEQ POWDER FOR ORAL SOLN PO (14:13)
[2018-09-26] MEDS: ALBUTEROL/IPRATROPIUM (NEB) 3 ML AMP HHN ×4 (01:26→20:33)
[2018-09-26] MEDS: PANTOPRAZOLE 40 MG INJ IV (06:02)
[2018-09-26] MEDS: FUROSEMIDE 20 MG INJ IV (06:02)
[2018-09-26] MEDS: BUDESONIDE (NEB) 0.5MG/2ML AMP HHN ×2 (08:55→20:33)
[2018-09-26] MEDS ORDERED: POTASSIUM CHLORIDE 20 MEQ POWDER FOR ORAL SOLN PO (09:00)
[2018-09-26] MEDS: ISOSORBIDE DINITRATE 20 MG TAB NGT ×4 (09:00→20:09)
[2018-09-26] MEDS: ASPIRIN 81 MG TAB NGT (11:15)
[2018-09-26] MEDS: LISINOPRIL 20 MG TAB NGT ×2 (11:15→20:10)
[2018-09-26] MEDS: SPIRONOLACTONE 50 MG TAB NGT (11:15)
[2018-09-26 11:39] LABS: ADD MAN DIFF? NO
[2018-09-26 11:45] LABS: WHITE BLOOD COUNT 9.7 10^3/ul (4.8-10.8)
[2018-09-26 11:45] LABS: BASOPHILS % 0.3 % (0.0-2.0); EOSINOPHILS # 0.2 10^3/ul (0.0-0.5); EOSINOPHILS % 1.6 % (0.0-7.0); HEMATOCRIT 36.4 % (37.0-47.0); LYMPHOCYTES # 0.8 10^3/ul (0.8-2.9); MEAN CORPUSCULAR HEMOGLOBIN 29.5 pg (29.0-33.0); MEAN CORPUSCULAR VOLUME 89.4 fl (82.0-101.0); MEAN PLATELET VOLUME 10.4 fl (7.4-10.4); MONOCYTE # 0.9 10^3/ul (0.3-0.9); NEUTROPHIL # 7.8 10^3/ul (1.6-7.5); PLATELET COUNT 375 10^3/UL (140-415); RED BLOOD COUNT 4.07 10^6/ul (4.20-5.40); RED CELL DISTRIBUTION WIDTH 14.4 % (11.5-14.5)
[2018-09-26 12:03] LABS: ALANINE AMINOTRANSFERASE 64 IU/L (13-69); ALBUMIN 3.7 g/dl (3.3-4.9); ALBUMIN/GLOBULIN RATIO 1.12; ALKALINE PHOSPHATASE 152 IU/L (42-121); ANION GAP 10 (5-13); ASPARTATE AMINO TRANSFERASE 43 IU/L (15-46); BILIRUBIN,INDIRECT 0.3 mg/dl (0-1.1); BILIRUBIN,TOTAL 0.3 mg/dl (0.2-1.3); BLOOD UREA NITROGEN 13 mg/dl (7-20); CARBON DIOXIDE 28 mmol/L (21-31); CHLORIDE 104 mmol/L (97-110); CREATININE 0.86 mg/dl (0.44-1.00); Estimated GFR > 60 mL/min (>60); GLUCOSE 105 mg/dl (70-220); SODIUM 142 mmol/L (135-144)
[2018-09-26 12:10] LABS: POTASSIUM 2.9 mmol/L (3.5-5.1)
[2018-09-26] MEDS: POTASSIUM CHLORIDE (SR) 20 MEQ TAB PO ×2 (13:23→16:48)
[2018-09-27] MEDS: ALBUTEROL/IPRATROPIUM (NEB) 3 ML AMP HHN ×4 (02:18→20:23)
[2018-09-27] MEDS: FUROSEMIDE 20 MG INJ IV (06:12)
[2018-09-27] MEDS: PANTOPRAZOLE 40 MG INJ IV (06:12)
[2018-09-27] MEDS: hydrALAzine 20 MG INJ IV (06:48)
[2018-09-27] MEDS: BUDESONIDE (NEB) 0.5MG/2ML AMP HHN ×2 (09:00→20:23)
[2018-09-27] MEDS: LISINOPRIL 20 MG TAB NGT ×2 (10:01→21:00)
[2018-09-27] MEDS: ASPIRIN 81 MG TAB NGT (10:01)
[2018-09-27] MEDS: SPIRONOLACTONE 50 MG TAB NGT (10:01)
[2018-09-27] MEDS: ISOSORBIDE DINITRATE 20 MG TAB NGT ×3 (10:01→21:00)
[2018-09-27 15:30] LABS: ANION GAP 10 (5-13); BLOOD UREA NITROGEN 22 mg/dl (7-20); CALCIUM 9.1 mg/dl (8.4-10.2); CARBON DIOXIDE 28 mmol/L (21-31); CHLORIDE 101 mmol/L (97-110); CREATININE 1.21 mg/dl (0.44-1.00); Estimated GFR 54 mL/min (>60); GLUCOSE 155 mg/dl (70-220); POTASSIUM 4.1 mmol/L (3.5-5.1); SODIUM 139 mmol/L (135-144)
[2018-09-28] MEDS: ALBUTEROL/IPRATROPIUM (NEB) 3 ML AMP HHN ×4 (01:52→20:24)
[2018-09-28] MEDS: PANTOPRAZOLE 40 MG INJ IV (05:42)
[2018-09-28] MEDS: FUROSEMIDE 20 MG INJ IV (05:43)
[2018-09-28 06:23] LABS: ADD MAN DIFF? NO
[2018-09-28 06:29] LABS: WHITE BLOOD COUNT 8.4 10^3/ul (4.8-10.8)
[2018-09-28 06:29] LABS: BASOPHIL # 0.1 10^3/ul (0.0-0.1); BASOPHILS % 0.7 % (0.0-2.0); EOSINOPHILS # 0.2 10^3/ul (0.0-0.5); EOSINOPHILS % 1.9 % (0.0-7.0); HEMATOCRIT 35.2 % (37.0-47.0); HEMOGLOBIN 11.4 g/dl (12.0-16.0); LYMPHOCYTES % 12.3 % (15.0-51.0); MEAN CORPUSCULAR HGB CONC 32.4 g/dl (32.0-37.0); MEAN CORPUSCULAR VOLUME 92.6 fl (82.0-101.0); MEAN PLATELET VOLUME 10.4 fl (7.4-10.4); MONOCYTE # 0.7 10^3/ul (0.3-0.9); MONOCYTES % 8.5 % (0.0-11.0); NEUTROPHIL # 6.4 10^3/ul (1.6-7.5); NEUTROPHILS % 75.5 % (39.0-77.0); PLATELET COUNT 413 10^3/UL (140-415); RED CELL DISTRIBUTION WIDTH 14.2 % (11.5-14.5)
[2018-09-28 06:57] LABS: ANION GAP 9 (5-13); BLOOD UREA NITROGEN 21 mg/dl (7-20); CALCIUM 9.3 mg/dl (8.4-10.2); CARBON DIOXIDE 28 mmol/L (21-31); CHLORIDE 103 mmol/L (97-110); CREATININE 1.06 mg/dl (0.44-1.00); Estimated GFR > 60 mL/min (>60); GLUCOSE 111 mg/dl (70-220); SODIUM 140 mmol/L (135-144)
[2018-09-28] MEDS: ASPIRIN 81 MG TAB NGT (08:35)
[2018-09-28] MEDS: SPIRONOLACTONE 50 MG TAB NGT (08:35)
[2018-09-28] MEDS: ISOSORBIDE DINITRATE 20 MG TAB NGT ×3 (08:35→21:15)
[2018-09-28] MEDS: LISINOPRIL 20 MG TAB NGT ×2 (08:36→21:14)
[2018-09-28] MEDS: BUDESONIDE (NEB) 0.5MG/2ML AMP HHN ×2 (09:27→20:24)
[2018-09-29] MEDS: ALBUTEROL/IPRATROPIUM (NEB) 3 ML AMP HHN ×4 (02:44→19:23)
[2018-09-29] MEDS: PANTOPRAZOLE (EC) 40 MG TAB PO (06:09)
[2018-09-29] MEDS: FUROSEMIDE 20 MG INJ IV (06:09)
[2018-09-29 06:59] LABS: ALBUMIN 3.4 g/dl (3.3-4.9); ANION GAP 10 (5-13); BLOOD UREA NITROGEN 29 mg/dl (7-20); CALCIUM 9.1 mg/dl (8.4-10.2); CARBON DIOXIDE 26 mmol/L (21-31); CHLORIDE 101 mmol/L (97-110); CREATININE 1.07 mg/dl (0.44-1.00); GLUCOSE 88 mg/dl (70-220); PHOSPHORUS 4.7 mg/dl (2.5-4.9); POTASSIUM 4.9 mmol/L (3.5-5.1); SODIUM 137 mmol/L (135-144)
[2018-09-29] MEDS: BUDESONIDE (NEB) 0.5MG/2ML AMP HHN ×3 (08:06→19:24)
[2018-09-29] MEDS: SPIRONOLACTONE 50 MG TAB NGT (08:20)
[2018-09-29] MEDS: ISOSORBIDE DINITRATE 20 MG TAB NGT ×3 (08:21→21:12)
[2018-09-29] MEDS: ASPIRIN 81 MG TAB NGT (08:21)
[2018-09-29] MEDS: LISINOPRIL 20 MG TAB NGT ×2 (08:21→21:12)
[2018-09-29] MEDS: DEXTROSE 5%-0.9% NACL 1,000 ML IV (21:00)
[2018-09-30] MEDS: ALBUTEROL/IPRATROPIUM (NEB) 3 ML AMP HHN ×4 (01:47→19:52)
[2018-09-30] MEDS: DEXTROSE 5%-0.9% NACL 1,000 ML IV (05:20)
[2018-09-30] MEDS: PANTOPRAZOLE (EC) 40 MG TAB PO (06:33)
[2018-09-30] MEDS: FUROSEMIDE 20 MG INJ IV (06:33)
[2018-09-30] MEDS ORDERED: LIDOCAINE 2%/EPI 30 ML INJ (06:54)
[2018-09-30] MEDS ORDERED: LIDOCAINE 1% (MDV) 20 ML INJ (07:11)
[2018-09-30] MEDS ORDERED: LIDOCAINE 1%/EPI 30 ML INJ (07:11)
[2018-09-30] MEDS ORDERED: CEFAZOLIN 1 GM/50 ML (PMX) 100 ML IVPB (07:13)
[2018-09-30] MEDS: BUDESONIDE (NEB) 0.5MG/2ML AMP HHN ×2 (08:44→19:53)
[2018-09-30] MEDS ORDERED: morphine SULFATE/PF (2 MG/2 ML) SYG IV (09:00)
[2018-09-30] MEDS: ISOSORBIDE DINITRATE 20 MG TAB NGT ×3 (09:47→20:04)
[2018-09-30] MEDS: ASPIRIN 81 MG TAB NGT (09:47)
[2018-09-30] MEDS: SPIRONOLACTONE 50 MG TAB NGT (09:47)
[2018-09-30] MEDS: LISINOPRIL 20 MG TAB NGT ×2 (09:48→20:05)
[2018-09-30] MEDS: CEFAZOLIN 1 GM/50 ML (PMX) 50 ML IVPB ×2 (13:44→22:42)
[2018-09-30] MEDS ORDERED: morphine LIQ (10 MG/5 ML) CUP PO (23:00)
[2018-10-01] MEDS: ALBUTEROL/IPRATROPIUM (NEB) 3 ML AMP HHN ×4 (02:06→19:50)
[2018-10-01] MEDS: PANTOPRAZOLE (EC) 40 MG TAB PO (05:56)
[2018-10-01] MEDS: FUROSEMIDE 20 MG INJ IV (05:56)
[2018-10-01] MEDS: CEFAZOLIN 1 GM/50 ML (PMX) 50 ML IVPB (05:56)
[2018-10-01] MEDS: LABETALOL HCL 20MG INJ IV (05:59)
[2018-10-01 07:28] LABS: ALBUMIN 3.6 g/dl (3.3-4.9); ANION GAP 9 (5-13); BLOOD UREA NITROGEN 14 mg/dl (7-20); CALCIUM 9.5 mg/dl (8.4-10.2); CARBON DIOXIDE 31 mmol/L (21-31); CHLORIDE 103 mmol/L (97-110); GLUCOSE 97 mg/dl (70-220); MAGNESIUM 2.1 mg/dl (1.7-2.5); PHOSPHORUS 3.9 mg/dl (2.5-4.9); POTASSIUM 4.5 mmol/L (3.5-5.1); SODIUM 143 mmol/L (135-144)
[2018-10-01] MEDS: LISINOPRIL 20 MG TAB NGT ×2 (08:09→20:44)
[2018-10-01] MEDS: ISOSORBIDE DINITRATE 20 MG TAB NGT ×3 (08:09→20:44)
[2018-10-01] MEDS: SPIRONOLACTONE 50 MG TAB NGT (08:09)
[2018-10-01] MEDS: ASPIRIN 81 MG TAB NGT (08:10)
[2018-10-01] MEDS: BUDESONIDE (NEB) 0.5MG/2ML AMP HHN ×2 (08:17→20:05)
[2018-10-02] MEDS: ALBUTEROL/IPRATROPIUM (NEB) 3 ML AMP HHN ×4 (01:06→19:44)
[2018-10-02] MEDS: LABETALOL HCL 20MG INJ IV (04:33)
[2018-10-02] MEDS: FUROSEMIDE 20 MG INJ IV (05:38)
[2018-10-02] MEDS: PANTOPRAZOLE (EC) 40 MG TAB PO (05:39)
[2018-10-02] MEDS: ISOSORBIDE DINITRATE 20 MG TAB NGT (08:30)
[2018-10-02] MEDS: LISINOPRIL 20 MG TAB NGT ×2 (08:30→20:16)
[2018-10-02] MEDS: SPIRONOLACTONE 50 MG TAB NGT (08:30)
[2018-10-02] MEDS: ASPIRIN 81 MG TAB NGT (08:30)
[2018-10-02] MEDS: BUDESONIDE (NEB) 0.5MG/2ML AMP HHN ×2 (08:51→19:44)
[2018-10-02] MEDS: ISOSORBIDE DINITRATE 20 MG TAB PO ×2 (13:00→20:15)
[2018-10-03] MEDS: ALBUTEROL/IPRATROPIUM (NEB) 3 ML AMP HHN ×3 (01:33→13:30)
[2018-10-03] MEDS: FUROSEMIDE 20 MG INJ IV (05:43)
[2018-10-03] MEDS: PANTOPRAZOLE (EC) 40 MG TAB PO (05:43)
[2018-10-03] MEDS: BUDESONIDE (NEB) 0.5MG/2ML AMP HHN (07:55)
[2018-10-03] MEDS: ISOSORBIDE DINITRATE 10 MG TAB PO ×2 (08:40→12:42)
[2018-10-03] MEDS: POLYMYXIN/BACITRACIN 1L IRRIG IRR (08:41)
[2018-10-03] MEDS: SPIRONOLACTONE 50 MG TAB NGT (08:41)
[2018-10-03] MEDS: ASPIRIN 81 MG TAB NGT (08:41)
[2018-10-03] MEDS: LISINOPRIL 20 MG TAB NGT (08:41)
[2018-10-03] MEDS ORDERED: ISOSORBIDE DINITRATE 10 MG TAB PO (17:00)
== END 2018-10-03 16:24 | disposition home health service (06) | DRG 224 ==
LOC: TEL 09-25 02:02 → E/R 12:31 → ICU 16:10
PROVIDERS: Internal Medicine
PROC: 0JH608Z Insertion of Defibrillator Generator into Chest Subcutaneous Tissue and Fascia, Open Approach (ICD-10-PCS; principal; 2018-09-22 07:52)
PROC: 02HK3KZ Insertion of Defibrillator Lead into Right Ventricle, Percutaneous Approach (ICD-10-PCS; 2018-09-22 07:52)
PROC: 4A023N7 Measurement of Cardiac Sampling and Pressure, Left Heart, Percutaneous Approach (ICD-10-PCS; 2018-09-22 07:52)
PROC: 5A1955Z Respiratory Ventilation, Greater than 96 Consecutive Hours (ICD-10-PCS; 2018-09-22 07:52)
PROC: 05HM33Z Insertion of Infusion Device into Right Internal Jugular Vein, Percutaneous Approach (ICD-10-PCS; 2018-09-22 07:52)
PROC: 0BH18EZ Insertion of Endotracheal Airway into Trachea, Via Natural or Artificial Opening Endoscopic (ICD-10-PCS; 2018-09-22 07:52)
PROC: B211YZZ Fluoroscopy of Multiple Coronary Arteries using Other Contrast (ICD-10-PCS; 2018-09-22 07:52)
PROC: 5A2204Z Restoration of Cardiac Rhythm, Single (ICD-10-PCS; 2018-09-22 07:52)
PROC: 5A2204Z Restoration of Cardiac Rhythm, Single (ICD-10-PCS; 2018-09-22 07:52)
PROC: 30233N1 Transfusion of Nonautologous Red Blood Cells into Peripheral Vein, Percutaneous Approach (ICD-10-PCS; 2018-09-22 07:52)
DX: I49.01 Ventricular fibrillation (principal); A41.9 Sepsis, unspecified organism; R65.21 Severe sepsis with septic shock; J96.01 Acute respiratory failure with hypoxia; J69.0 Pneumonitis due to inhalation of food and vomit; J96.02 Acute respiratory failure with hypercapnia; G92 Toxic encephalopathy; I21.4 Non-ST elevation (NSTEMI) myocardial infarction; N17.9 Acute kidney failure, unspecified; E87.2 Acidosis; E87.0 Hyperosmolality and hypernatremia; E87.6 Hypokalemia; I47.2 Ventricular tachycardia; I46.2 Cardiac arrest due to underlying cardiac condition; E78.5 Hyperlipidemia, unspecified; I42.9 Cardiomyopathy, unspecified; D69.6 Thrombocytopenia, unspecified; I11.0 Hypertensive heart disease with heart failure; I50.9 Heart failure, unspecified; D64.9 Anemia, unspecified; I77.3 Arterial fibromuscular dysplasia; I67.1 Cerebral aneurysm, nonruptured; F22 Delusional disorders
CPT/HCPCS: 31500; 33249; 36415; 36430; 36600; 70450; 70496; 71045; 72125; 76775; 76937; 80048; 80053; 80069; 80202; 80307; 81001; 82150; 82270; 82550; 82553; 82803; 82962; 83036; 83605; 83690; 83735; 83880; 84100; 84132; 84300; 84443; 84484; 85025; 85384; 85610; 85730; 86850; 86900; 86901; 86920; 87040; 87070; 87081; 87086; 92526; 92610; 92950; 93005; 93306; 93458; 93976; 94002; 94003; 94640; 94664; 94770; 96374; 96375; 97110; 97116; 97161; 97164; 97167; 97530; 97535; 99291-25

== ENCOUNTER 2018-10-04 10:37 | Emergency (ER) | payer OTHER | END 2018-10-04 12:42 | disposition home or self-care (01) | LOC: E/R 10:37 | DX: I95.2 Hypotension due to drugs (principal); I10 Essential (primary) hypertension; Z79.82 Long term (current) use of aspirin | CPT/HCPCS: 93005; 99283-25 ==